=== PATIENT | female | born 1990 | race Caucasian/White ===

== ENCOUNTER → 2017-06-29 13:39 | Outpatient (CLI) | payer BC, SELFPAY ==
[2017-06-29 16:46] LABS: hCG Titer Quant., Serum 10 mIU/mL (<9 non-preg)
== END ==
PROVIDERS: Family Provider Family Medicine; PCP Family Medicine; Visit Provider Specialist
DX: O03.4 Incomplete spontaneous abortion without complication (principal)
CPT/HCPCS: 36415; 84702

== ENCOUNTER → 2017-07-08 12:55 | Outpatient (CLI) | payer BC, SELFPAY ==
--- NOTE | 2017-07-08 12:59 | US_ITS ---
STUDY: ULTRASOUND OF THE FEMALE PELVIS - COMPLETE REASON FOR EXAM: Female, 27 years old. Pelvic pain. Recent miscarriage. LMP: April 04, 2017. TECHNIQUE: Transvaginal TECHNICAL QUALITY: Adequate. COMPARISON: None. FINDINGS: The uterus is anteverted and is in a midline position. The uterus measures 8.7 cm x 5.0 cm x 3.6 cm. There is a Nabothian cyst of the cervix. The endometrium measures 9.1 mm in thickness, and is hyperechoic. There is no demonstrated endometrial mass. There is no demonstrated myometrial mass. I.U.D. - The patient does not have an I.U.D. The right ovary is visualized. The right ovary measures 3.7 cm x 1.4 cm x 1.6 cm. There is a dominant follicle within the ovary measuring 1.3 cm x 0.7 cm x 0.8 cm. There is no visualized right adnexal mass or complex lesion. There is normal arterial and normal venous vascularity. The left ovary is visualized. The left ovary measures 2.2 cm x 2.8 cm x 2.7 cm. Small follicles are seen within it. There is also evidence of a 1.4 cm x 1.2 cm x 1.1 cm echogenic nodule. This may represent a there are moderate. There is no visualized left adnexal mass or complex lesion. There is normal arterial and normal venous vascularity. There is no fluid in the cul-de-sac. US/Transvaginal Non- IMPRESSION: Bilateral ovarian follicles. 1.4 cm x 1.2 cm x 1.1 cm echogenic focus seen in the left ovary. This may represent a fat-containing nodule such as a dermoid. Electronically Signed: Bronson Wasserman MD at 15:19 EST Tel [phone], Service support ,
== END ==
PROVIDERS: Family Provider Family Medicine; PCP Family Medicine; Visit Provider Specialist
DX: R10.2 Pelvic and perineal pain (principal)
CPT/HCPCS: 76830; 93976

== ENCOUNTER → 2018-07-14 10:12 | Outpatient (CLI) | payer BC, SELFPAY ==
[2018-07-14 09:16] VITALS: BMI 25.1
[2018-07-14 12:31] LABS: Absolute Lymphocyte Count 1.93 X10^3/ul (0.83-4.51); Absolute Neutrophil Count 7.8 X10^3/uL (2.0-7.7); Basophil# 0.02 X10^3/uL; Basophil% 0.2 % (0-1); Eosinophil# 0.09 X10^3/uL; Eosinophils% 0.8 % (0-5); Hematocrit 37.2 % (37-47); Lymphocyte # 1.93 X10^3/ul (4.0); Lymphocyte % 18.1 % (19-41); Mean Corp Hgb Conc 32.3 g/gl (32-36); Mean Platelet Vol. 11.9 fl (6.2-12.0); Monocyte% 7.5 % (0-10); Neutrophil # 7.75 X10^3/uL (2.7-7.7); Neutrophil % 72.5 % (47-70); Platelet Count 231 K/mm3 (150-450); RBC Distribution Width CV 13.6 % (11.6-14.6); RBC Distribution Width SD 46.3 fl (35.1-43.9); White Blood Count 10.7 K/mm3 (4.4-11.0)
[2018-07-14 12:34] LABS: POSITIVE COUNT NO; POSITIVE DIFFERENTIAL NO; POSITIVE MORPHOLOGY NO
[2018-07-14 13:04] LABS: Glucose Challenge Gest 1H 50g 87 mg/dL (70-140)
== END ==
PROVIDERS: Family Provider Family Medicine; PCP Family Medicine; Visit Provider Obstetrics & Gynecology
DX: Z34.90 Encounter for supervision of normal pregnancy, unspecified, unspecified trimester (principal)
CPT/HCPCS: 36415; 82950; 85025

== ENCOUNTER → 2018-07-30 13:56 | Outpatient (CLI) | payer BC, SELFPAY ==
[2018-07-28 09:51] VITALS: BMI 25.1
[2018-07-30 16:58] LABS: T4 Free Direct 0.85 ng/dL (0.76-1.46); Thyroid Stim Hormone (TSH) 4.14 uIU/mL (0.358-3.74)
== END ==
PROVIDERS: Family Provider Family Medicine; PCP Family Medicine; Referring Provider Family Medicine; Visit Provider Nurse Practitioner Women's Health
DX: E03.9 Hypothyroidism, unspecified (principal)
CPT/HCPCS: 36415; 84439; 84443

== ENCOUNTER → 2018-09-01 14:22 | Outpatient (CLI) | payer BC, SELFPAY ==
[2018-09-01 09:07] VITALS: BMI 25.1
[2018-09-01 17:08] LABS: T4 Free Direct 0.92 ng/dL (0.76-1.46)
== END ==
PROVIDERS: Family Provider Family Medicine; PCP Family Medicine; Referring Provider Family Medicine; Visit Provider Obstetrics & Gynecology
DX: E03.9 Hypothyroidism, unspecified (principal)
CPT/HCPCS: 36415; 84439; 84443

== ENCOUNTER → 2018-09-09 17:04 | Outpatient (CLI) | payer BC, SELFPAY ==
[2018-09-09 13:55] VITALS: BMI 25.1
== END ==
PROVIDERS: Family Provider Family Medicine; PCP Family Medicine; Referring Provider Nurse Practitioner Women's Health; Visit Provider Nurse Practitioner Women's Health
DX: Z34.90 Encounter for supervision of normal pregnancy, unspecified, unspecified trimester (principal)
CPT/HCPCS: 87081

== ENCOUNTER → 2018-09-15 11:32 | Outpatient (CLI) | payer BC, SELFPAY ==
[2018-08-27 10:10] VITALS: BMI 25.1
[2018-09-09 13:55] VITALS: BMI 25.1
--- NOTE | 2018-09-15 11:36 | US_ITS ---
STUDY: SECOND AND THIRD TRIMESTER OBSTETRICAL ULTRASOUND - LIMITED REASON FOR EXAM: Female, 28 years old. growth. Maternal hypothyroidism. LMP: 12/24/2017 PRIOR ULTRASOUND: None. TECHNIQUE: Transabdominal ultrasound evaluation was performed. FINDINGS: Single live intrauterine gestation, cephalic presentation, cardiac rate 146 bpm. Amniotic fluid index 13.6 cm, maximum vertical pocket 4.3 x 8 cm. Cervical length 3.9 cm, closed. Placenta grade 2, anterior, not low-lying. Maternal adnexa not visualized. BIOMETRY: Measurement and centimeter. BPD: 9.1: 37 weeks, 0 days HC: 33.8: 38 weeks, 6 days AC: 34.9 : 38 weeks, 6 days FL: 7.4: 38 weeks, 0 days Age by LMP: 37 weeks, 6 days. EMILY by LMP: 09/30/2018. age by current US: 38 weeks, 2 days. EMILY by current US: 09/27/2018. Estimated weight: 3465 grams, +/- 506 grams, 73 percentile. Limited anatomic images were obtained for assessment of dates, viability and position only. In the limited survey no gross anatomic abnormality was observed. Anatomic imaging is limited by advanced dates. US/OB Limited With Biometrics IMPRESSION: No acute or maternal abnormality is evident. biometrics as noted above. Electronically Signed: Anselmo Harrell MD at 16:50 EDT Tel , Service support ,
== END ==
PROVIDERS: Family Provider Family Medicine; PCP Family Medicine; Referring Provider Obstetrics & Gynecology; Visit Provider Obstetrics & Gynecology
DX: O36.5990 Maternal care for other known or suspected poor fetal growth, unspecified trimester, not applicable or unspecified (principal); Z3A.00 Weeks of gestation of pregnancy not specified
CPT/HCPCS: 76816

== ENCOUNTER 2018-09-25 16:20 | Inpatient (IN) | payer BC, SELFPAY ==
[2018-09-22 08:53] VITALS: BMI 25.1
[2018-09-25 12:46] VITALS: BMI 28.5
[2018-09-25] MEDS: Lactated Ringers 1,000 ML 50 ML IV (16:30)
[2018-09-25 16:53] LABS: Absolute Lymphocyte Count 3.41 X10^3/ul (0.83-4.51); Absolute Neutrophil Count 7.8 X10^3/uL (2.0-7.7); Basophil# 0.03 X10^3/uL; Basophil% 0.2 % (0-1); Eosinophil# 0.05 X10^3/uL; Eosinophils% 0.4 % (0-5); Hematocrit 37.4 % (37-47); Hemoglobin 12.6 g/dl (12.0-15.0); Lymphocyte # 3.41 X10^3/ul (4.0); Lymphocyte % 27.6 % (19-41); Mean Corp Hgb Conc 33.7 g/gl (32-36); Mean Platelet Vol. 13.4 fl (6.2-12.0); Monocyte# 1.03 X10^3/uL; Monocyte% 8.3 % (0-10); Neutrophil % 63.3 % (47-70); Platelet Count 212 K/mm3 (150-450); RBC Distribution Width CV 13.6 % (11.6-14.6); RBC Distribution Width SD 44.4 fl (35.1-43.9); White Blood Count 12.3 K/mm3 (4.4-11.0)
[2018-09-25 17:08] LABS: POSITIVE COUNT NO; POSITIVE DIFFERENTIAL NO; POSITIVE MORPHOLOGY NO
--- NOTE | 2018-09-25 17:08 | PCM.HP.OB ---
- Problem List (1) Active labor at term Status: Acute (2) Hypothyroid Status: Acute Qualifiers: Comment: Needs repeat TSH in each trimester. (3) History of gestational hypertension Status: Acute Comment: baby ASA (4) Supervision of normal Status: Acute Qualifiers: Comment: PRR EMILY 09/30/18 PC Bing Melany Peterson Perdomo (5) Status: Acute Qualifiers: Comment: genetic, carrier, and ntd screening declined. anatomy scan normal at [place]. History Date of Admission: 09/25/18 Final EMILY: 09/30/18 Gestational age: 39 Weeks and 2 Days History of this : This is a 28 year-old, at 39 weeks gestational age presented IAL 7 cm dilated with SROM. She had been having ctx all day and started having some vaginal bleeding and clear discharge. she denies any complications wit the . Medical History: Medical History (Last Reviewed 09/22/18 @ 08:53 by Rema Villalpando) History of depression Z86.59 History of gestational hypertension Z87.59 2016 History of miscarriage Z87.59 History of depression Z87.59, Z86.59 Thyroid disorder E07.9 Surgical History: Surgical History (Last Reviewed 09/22/18 @ 08:53 by Rema Villalpando) History of tonsillectomy Z90.89 Allergies Sulfa (Sulfonamide Antibiotics) Allergy (Verified 09/25/18 16:57) Hives Home Medications: Home Medications No122/Iron/Folic Acid [ Multi Tablet] 1 ea PO DAILY 09/17/16 aspirin 81 mg chewable tablet 81 mg PO DAILY 06/14/18 sertraline 50 mg tablet 50 mg PO DAILY 06/14/18 levothyroxine 25 mcg tablet 25 mcg PO DAILY 08/27/18 Smoking Status: Former smoker History Past Pregnancies: Past Pregnancies 2 previous term deliveries uncomplicated Labs: Mom's Labs & Results 09/25/18 09/25/18 16:35 16:35 WBC 12.3 H RBC 4.20 Hgb 12.6 Hct 37.4 MCV 89.0 MCH 30.0 MCHC 33.7 RDW 13.6 RDW Differential 44.4 H Plt Count 212 MPV 13.4 H Immature Gran % (Auto) 0.200 Neut % (Auto) 63.3 Lymph % (Auto) 27.6 [place] % (Auto) 8.3 Eos % (Auto) 0.4 Baso % (Auto) 0.2 Absolute Neuts (auto) 7.8 H Absolute Lymphs (auto) 3.41 Total Counted Not Reportable Blood Type Pending Antibody Screen Pending Course Did the patient receive Yes care? Labs Blood Type: B RH: POSITIVE RPR/VDRL/Syphilis Nonreactive Rubella status Immune HbSAg Negative Date Done: 04/01/18 Chlamydia Negative Gonorrhea Negative HIV/AIDS Non-Reactive Group B Strep: Negative Current Obstetrical History Gestational Diabetes No Incompetent Cervix No Infertility No IUGR No Macrosomia No Hypertension/Pre-eclampsia No Social History Hx Smoking Yes Smoking Status Former smoker Expected Infant Delivery Method: Spontaneous Vaginal Review of Systems Constitutional: Denies: Fever, Malaise Eyes: Denies: Blurred vision, Vision Change HEENT: Denies: Head Aches, Visual Changes Cardiovascular: Denies: Chest Pain, Palpitations Respiratory: Denies: Cough, Shortness of Breath, Wheezing Gastrointestinal: Reports: Abdominal Pain. Denies: Diarrhea, Nausea, Vomiting Genitourinary: Denies: Dysuria, Hematuria Gynecological: Reports: Vaginal bleeding, Vaginal discharge Musculoskeletal: Denies: Joint Pain, Muscle pain Skin: Denies: Lesions, Rash Neurological: Denies: Blurred vision, Focal weakness, Headaches Psychiatric: Denies: Anxiety, Depression Endocrine: Denies: Heat/ Cold Intolerance Hematologic/ Lymphatic: Denies: Easy Bruising, Easy Bleeding Physical Exam General: Alert HEENT: Atraumatic, Normocephalic. Negative for: Thyromegaly, Lymphadenopathy Cardiovascular: Regular rate Lungs: Normal air movement Abdomen: Soft, Non Tender, Gravid Neurological: Deep Tendon Reflexes 2+/4 and Symmetrical, Neuro grossly intact. 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 Negative for: Vulvar lesions Estimated gestational size: Appropriate for gestational size Presentation: Cephalic Cervix Dilation (cm): 7 Assessment/Plan All Active Problems (Last Reviewed 09/22/18 @ 08:53 by Rema Villalpando) Active labor at term (Acute) Hypothyroid (Acute) History of gestational hypertension (Acute) Supervision of normal (Acute) (Acute) This is a 28 year-old, at 39 weeks gestational age presents IAL Patient presents IAL, plan expectant management for , pitocin PRN if needed. Pain management: none. GBS negative. Management of any complications: none I have reviewed the [facility] and made any clinically relevant updates.
--- NOTE | 2018-09-25 17:16 | HP.PCM_ITS ---
- Problem List (1) Active labor at term Status: Acute (2) Hypothyroid Status: Acute Qualifiers: Comment: Needs repeat TSH in each trimester. (3) History of gestational hypertension Status: Acute Comment: baby ASA (4) Supervision of normal Status: Acute Qualifiers: Comment: PRR EMILY 09/30/18 PC Bing Melany Peterson Perdomo (5) Status: Acute Qualifiers: Comment: genetic, carrier, and ntd screening declined. anatomy scan normal at [place]. History Date of Admission: 09/25/18 Final EMILY: 09/30/18 Gestational age: 39 Weeks and 2 Days History of this : This is a 28 year-old, at 39 weeks gestational age presented IAL 7 cm dilated with SROM. She had been having ctx all day and started having some vaginal bleeding and clear discharge. she denies any complications wit the . Medical History: Medical History (Last Reviewed 09/22/18 @ 08:53 by Rema Villalpando) History of depression Z86.59 History of gestational hypertension Z87.59 2016 History of miscarriage Z87.59 History of depression Z87.59, Z86.59 Thyroid disorder E07.9 Surgical History: Surgical History (Last Reviewed 09/22/18 @ 08:53 by Rema Villalpando) History of tonsillectomy Z90.89 Allergies Sulfa (Sulfonamide Antibiotics) Allergy (Verified 09/25/18 16:57) Hives Home Medications: Home Medications No122/Iron/Folic Acid [ Multi Tablet] 1 ea PO DAILY 09/17/16 aspirin 81 mg chewable tablet 81 mg PO DAILY 06/14/18 sertraline 50 mg tablet 50 mg PO DAILY 06/14/18 levothyroxine 25 mcg tablet 25 mcg PO DAILY 08/27/18 Smoking Status: Former smoker History Past Pregnancies: Past Pregnancies 2 previous term deliveries uncomplicated Labs: Mom's Labs & Results 09/25/18 09/25/18 16:35 16:35 WBC 12.3 H RBC 4.20 Hgb 12.6 Hct 37.4 MCV 89.0 MCH 30.0 MCHC 33.7 RDW 13.6 RDW Differential 44.4 H Plt Count 212 MPV 13.4 H Immature Gran % (Auto) 0.200 Neut % (Auto) 63.3 Lymph % (Auto) 27.6 [place] % (Auto) 8.3 Eos % (Auto) 0.4 Baso % (Auto) 0.2 Absolute Neuts (auto) 7.8 H Absolute Lymphs (auto) 3.41 Total Counted Not Reportable Blood Type Pending Antibody Screen Pending Course Did the patient receive Yes care? Labs Blood Type: B RH: POSITIVE RPR/VDRL/Syphilis Nonreactive Rubella status Immune HbSAg Negative Date Done: 04/01/18 Chlamydia Negative Gonorrhea Negative HIV/AIDS Non-Reactive Group B Strep: Negative Current Obstetrical History Gestational Diabetes No Incompetent Cervix No Infertility No IUGR No Macrosomia No Hypertension/Pre-eclampsia No Social History Hx Smoking Yes Smoking Status Former smoker Expected Infant Delivery Method: Spontaneous Vaginal Review of Systems Constitutional: Denies: Fever, Malaise Eyes: Denies: Blurred vision, Vision Change HEENT: Denies: Head Aches, Visual Changes Cardiovascular: Denies: Chest Pain, Palpitations Respiratory: Denies: Cough, Shortness of Breath, Wheezing Gastrointestinal: Reports: Abdominal Pain. Denies: Diarrhea, Nausea, Vomiting Genitourinary: Denies: Dysuria, Hematuria Gynecological: Reports: Vaginal bleeding, Vaginal discharge Musculoskeletal: Denies: Joint Pain, Muscle pain Skin: Denies: Lesions, Rash Neurological: Denies: Blurred vision, Focal weakness, Headaches Psychiatric: Denies: Anxiety, Depression Endocrine: Denies: Heat/ Cold Intolerance Hematologic/ Lymphatic: Denies: Easy Bruising, Easy Bleeding Physical Exam General: Alert HEENT: Atraumatic, Normocephalic. Negative for: Thyromegaly, Lymphadenopathy Cardiovascular: Regular rate Lungs: Normal air movement Abdomen: Soft, Non Tender, Gravid Neurological: Deep Tendon Reflexes 2+/4 and Symmetrical, Neuro grossly intact. 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 Negative for: Vulvar lesions Estimated gestational size: Appropriate for gestational size Presentation: Cephalic Cervix Dilation (cm): 7 Assessment/Plan All Active Problems (Last Reviewed 09/22/18 @ 08:53 by Rema Villalpando) Active labor at term (Acute) Hypothyroid (Acute) History of gestational hypertension (Acute) Supervision of normal (Acute) (Acute) This is a 28 year-old, at 39 weeks gestational age presents IAL Patient presents IAL, plan expectant management for , pitocin PRN if needed. Pain management: none. GBS negative. Management of any complications: none I have reviewed the [facility] and made any clinically relevant updates.
--- NOTE | 2018-09-25 17:17 | OP.PCM_ITS ---
Problem List (1) Active labor at term Status: Acute (2) Hypothyroid Status: Acute Qualifiers: Comment: Needs repeat TSH in each trimester. (3) History of gestational hypertension Status: Acute Comment: baby ASA (4) Supervision of normal Status: Acute Qualifiers: Comment: PRR EMILY 09/30/18 PC Melany Smart Peterson Perdomo (5) Status: Acute Qualifiers: Comment: genetic, carrier, and ntd screening declined. anatomy scan normal at [place]. Vaginal Delivery Maternal Presentation: Active Labor 39-week in active labor Amniotic Membrane Rupture Type: Spontaneous at home Amniotic Fluid Description: Clear Final EMILY: 09/30/18 Gestational age: 39 Weeks and 2 Days Date of Procedure: 09/25/18 Pre-Operative Diagnosis: ial Post-Operative Diagnosis: same Surgery/ Procedure Performed: Spontaneous Vaginal Delivery Type of Anesthesia: None Description of Procedure: Patient began pushing and delivered the head in the ESPERANZA presentation. The head was delivered atraumatically and a loose nuchal cord ?1 was identified and easily reduced over the infant's head. The anterior and posterior shoulders delivered without complication followed by the rest of the infant and the was placed on the maternal abdomen. Delayed cord clamping was employed for approximately 60 seconds. Cord was clamped and cut and gentle traction was applied to the cord and the placenta delivered spontaneously immediately following it was noted to be intact with three-vessel cord. The perineum and vagina were inspected and noted to have no laceration. EBL was 50 cc. Patient and infant tolerated delivery well. Presentation: ESPERANZA Placental Delivery Description: Spontaneous Placenta Disposition: [facility] Cord Vessel Description: 3 Vessels Cord Entanglement: Around neck x 1, loose Estimated Blood Loss: 50 Infant A gender: Male Episiotomy Description: None Laceration: None Medications given after delivery: IV Pitocin Complications: None
[2018-09-25] MEDS: Oxytocin 30 units/NS 500 ml 30 UNITS/500 ML IV.SOLN 334 UNITS IV (17:50)
[2018-09-25] MEDS: Oxytocin 30 units/NS 500 ml 30 UNITS/500 ML IV.SOLN 167 UNITS IV (18:20)
[2018-09-25] MEDS: Naproxen 250 MG Tablet 500 MG PO (18:23)
[2018-09-25] MEDS: 0.9% Saline Lock 10 ML Syringe IV (19:20)
[2018-09-25 21:00] VITALS: BP 125/68; PULSE 80; RESP 16; TEMP 36.8
[2018-09-25] MEDS: Acetaminophen 500 MG Tablet 1000 MG PO (21:50)
[2018-09-26] VITALS: BP 105/49; PULSE 77; RESP 16; TEMP 36.3
[2018-09-26 04:00] VITALS: BP 105/67; PULSE 55; RESP 16; TEMP 36.6
[2018-09-26] MEDS: Naproxen 250 MG Tablet 500 MG PO ×2 (04:34→18:18)
[2018-09-26 07:45] VITALS: BP 113/66; PULSE 61; RESP 15; TEMP 35.9
--- NOTE | 2018-09-26 08:11 | PN.OBGYN_ITS ---
Patient Problems: Active and Suspected Problems (Last Reviewed 09/22/18 @ 08:53 by Rema Villalpando) Active labor at term (Acute) Subjective: doing well no complaints pain controlled no CP SOB N V ambulating well tolerating po lochia moderate, going well - Physical Exam General: Alert, Oriented x3 Abdomen: Soft, Non Tender, - - FF below U Vital Signs Temp Pulse Resp BP 97.9 F 55 L 16 105/67 09/26/18 04:00 09/26/18 04:00 09/26/18 04:00 09/26/18 04:00 Weight: 151 lb Body Mass Index (BMI) 28.5 Intake and Output for Last 24 Hours 09/24/18 09/25/18 09/26/18 23:59 23:59 23:59 Output Total 550 / 550 Balance -550 / -550 Laboratory Tests Past 24 Hrs 09/25/18 09/25/18 16:35 16:35 WBC 12.3 H RBC 4.20 Hgb 12.6 Hct 37.4 MCV 89.0 MCH 30.0 MCHC 33.7 RDW 13.6 RDW Differential 44.4 H Plt Count 212 MPV 13.4 H Immature Gran % (Auto) 0.200 Neut % (Auto) 63.3 Lymph % (Auto) 27.6 [place] % (Auto) 8.3 Eos % (Auto) 0.4 Baso % (Auto) 0.2 Absolute Neuts (auto) 7.8 H Absolute Lymphs (auto) 3.41 Total Counted Not Reportable Blood Type B POSITIVE Antibody Screen NEGATIVE Medical Necessity - Tobacco Use Smoking Status: Former smoker Assessment/Plan All Active Problems (Last Reviewed 09/22/18 @ 08:53 by Rema Villalpando) Active labor at term (Acute) Hypothyroid (Acute) History of gestational hypertension (Acute) Supervision of normal (Acute) (Acute) s/p PPD # 1 1. routine post delivery care 2. breast feeding- support given 3. rh positive 4. rubella immune
[2018-09-26] MEDS: Levothyroxine 25 MCG TABLET PO (12:20)
[2018-09-26] MEDS: Acetaminophen 500 MG Tablet 1000 MG PO (12:20)
[2018-09-26 12:30] VITALS: BP 111/66; PULSE 56; RESP 16; TEMP 36.3
[2018-09-26 16:00] VITALS: BP 89/45; PULSE 70; RESP 16; TEMP 36.1
--- NOTE | 2018-09-26 16:25 | PCM.DCVAG ---
Additional Instructions: If you experience any of the following, contact your healthcare provider. Bleeding that soaks a pad every hour for 2 hours Fever 100.4 or higher Unrelieved incision or abdominal pain Swelling, redness, discharge or bleeding from your incision or episiotomy site Your incision begins to separate Problems urinating (including inability to urinate or burning while urinating). Visual changes Severe headache Flu-like symptoms Pain or redness in one of both of your breasts Pain, warmth, tenderness or swelling in your legs, especially the calf area Frequent nausea and vomiting Symptoms of depression or anxiety If you experience any of the following, call 911 or go to the nearest Emergency Room. Chest pain Problems breathing Seizure activity Partial or complete paralysis of a body part, slurred speech, weakness or drooping of the face, or a sudden inability to walk or hold your balance Allergies/Adverse Reactions: Allergies Sulfa (Sulfonamide Antibiotics) Allergy (Verified 09/25/18 16:57) Hives Medications to take at Discharge No122/Iron/Folic Acid [ Multi Tablet] 1 ea PO DAILY 09/17/16 aspirin 81 mg chewable tablet 81 mg PO DAILY 06/14/18 sertraline 50 mg tablet 50 mg PO DAILY 06/14/18 levothyroxine 25 mcg tablet 25 mcg PO DAILY 08/27/18 Primary Care Physician: Katrina Cuevas MD [Primary Care Provider] - Test Results: Test results from this visit will be discussed in further detail at your follow-up appointment, if applicable.
--- NOTE | 2018-09-26 16:26 | DCINST_ITS ---
Additional Instructions: If you experience any of the following, contact your healthcare provider. * Bleeding that soaks a pad every hour for 2 hours * Fever 100.4 or higher * Unrelieved incision or abdominal pain * Swelling, redness, discharge or bleeding from your incision or episiotomy site * Your incision begins to separate * Problems urinating (including inability to urinate or burning while urinating). * Visual changes * Severe headache * Flu-like symptoms * Pain or redness in one of both of your breasts * Pain, warmth, tenderness or swelling in your legs, especially the calf area * Frequent nausea and vomiting * Symptoms of depression or anxiety If you experience any of the following, call 911 or go to the nearest Emergency Room. * Chest pain * Problems breathing * Seizure activity * Partial or complete paralysis of a body part, slurred speech, weakness or drooping of the face, or a sudden inability to walk or hold your balance Allergies/Adverse Reactions: Allergies Sulfa (Sulfonamide Antibiotics) Allergy (Verified 09/25/18 16:57) Hives Medications to take at Discharge No122/Iron/Folic Acid [ Multi Tablet] 1 ea PO DAILY 09/17/16 aspirin 81 mg chewable tablet 81 mg PO DAILY 06/14/18 sertraline 50 mg tablet 50 mg PO DAILY 06/14/18 levothyroxine 25 mcg tablet 25 mcg PO DAILY 08/27/18 Primary Care Physician: Ktarina Cuevas MD [Primary Care Provider] - Test Results: Test results from this visit will be discussed in further detail at your follow- up appointment, if applicable.
== END 2018-09-26 19:25 | disposition home or self-care (01) | DRG 807 ==
LOC: WPOUT 16:31
PROVIDERS: Admitting Provider Obstetrics & Gynecology; Family Provider Family Medicine; PCP Family Medicine; Referring Provider Obstetrics & Gynecology; Visit Provider Obstetrics & Gynecology
DX: O69.81X0 Labor and delivery complicated by cord around neck, without compression, not applicable or unspecified (principal); Z37.0 Single live birth; Z87.891 Personal history of nicotine dependence; Z87.59 Personal history of other complications of pregnancy, childbirth and the puerperium; Z86.59 Personal history of other mental and behavioral disorders; Z3A.39 39 weeks gestation of pregnancy
CPT/HCPCS: 59025; 59050; 85025; 86850; 86900; 99218; J7120; A4216; G0378

== ENCOUNTER → 2018-11-12 13:37 | Outpatient (CLI) | payer BC, SELFPAY ==
[2018-11-12 10:25] VITALS: BMI 28.5
[2018-11-17 11:32] LABS: HPV Reflexed? NOT INDICATED
== END ==
PROVIDERS: Family Provider Family Medicine; PCP Family Medicine; Referring Provider Obstetrics & Gynecology; Visit Provider Obstetrics & Gynecology
DX: Z12.4 Encounter for screening for malignant neoplasm of cervix (principal)
CPT/HCPCS: 87624; 88175; G0145

== ENCOUNTER → 2019-06-28 16:13 | Outpatient (CLI) | payer OTHER, SELFPAY ==
[2018-11-12 10:25] VITALS: BMI 28.5
[2019-06-28 18:24] LABS: Anion Gap 6 (5-15); BUN 16 mg/dL (7-18); BUN/Creat Ratio 19.7 RATIO (10-20); CPK Total, Creatine Kinase 110 U/L (26-192); Calcium,Total 9.3 mg/dL (8.5-10.1); Chloride 111 mmol/L (98-107); Creatinine, Serum 0.81 mg/dL (0.55-1.02); EST Glomerular Filtration Rate 89 mL/min (>60); Est Glom Filt Rate - Afr Amer 107 mL/min (>60); Ferritin 26 ng/mL (8-252); Glucose 72 mg/dL (74-106); Magnesium 2.2 mg/dL (1.6-2.6); Potassium 3.9 mmol/L (3.5-5.1); Sodium Level 145 mmol/L (136-145)
== END ==
PROVIDERS: PCP Family Medicine; Referring Provider Family Medicine; Visit Provider Family Medicine
DX: R25.2 Cramp and spasm (principal)
CPT/HCPCS: 36415; 80048; 82550; 82728; 83735

== ENCOUNTER → 2019-11-04 10:07 | Outpatient (CLI) | payer OTHER, SELFPAY ==
[2018-11-12 10:25] VITALS: BMI 28.5
--- NOTE | 2019-11-04 10:11 | US_ITS ---
STUDY: ABDOMINAL ULTRASOUND REASON FOR EXAM: Female, 29 years old. GENERAL ABD PAIN X 1.5 YEARS TECHNIQUE: Transabdominal ultrasound was performed with real-time and static dang scale imaging. TECHNICAL QUALITY: Adequate. COMPARISON: None. FINDINGS: Liver: The liver measures 13.6 cm. There is normal echogenicity of the liver. The bile ducts are within normal limits. There is hepatic color flow. The direction of portal flow is hepatopetal. There is no demonstrated mass lesion. Portal vein measurement: Gallbladder: Normal distended gallbladder. The gallbladder wall measures 2.0 mm. There is a negative sonographic Corado''s sign. There is no pericholecystic fluid. There are no gallstones. 2 small gallbladder polyps are seen. The larger measures 4 mm x 4 mm. Common Bile Duct (C.B.D.): The common bile duct measures 3.0 mm. Pancreas: Normal size of the head, body and tail of the pancreas. There is normal echogenicity of the pancreas. There is no demonstrated pancreatic mass or cyst. Spleen: Normal size of the spleen. The spleen measures 10.8 cm x 3.7 cm x 5.1 cm. Right Kidney: Normal size of the right kidney. The right kidney measures 9.8 cm x 5.1 cm x 4.9 cm. Normal renal cortex. The right cortex measures 1.3 cm. There is no demonstrated renal mass or cyst. There is no right hydronephrosis. Left Kidney: Normal size of the left kidney. The left kidney measures 10.3 cm x 4.5 cm x 5.1 cm. Normal renal cortex. The left cortex measures 1.4 cm. There is no demonstrated renal mass or cyst. There is no left hydronephrosis. Aorta: Unremarkable I.V.C.: The IVC is patent. There is no ascites. US/Abdomen Complete IMPRESSION: 2 small polyps are seen along the anterior wall of the gallbladder. Electronically Signed: Bronson Wasserman, at 12:12 EDT , Service support ,
== END ==
PROVIDERS: PCP Family Medicine; Referring Provider Family Medicine; Visit Provider Family Medicine
DX: R10.9 Unspecified abdominal pain (principal)
CPT/HCPCS: 76700

== ENCOUNTER → 2020-05-28 17:31 | Outpatient (CLI) | payer OTHER, SELFPAY ==
[2019-12-08 13:38] VITALS: BMI 23.4
== END ==
PROVIDERS: PCP Family Medicine; Visit Provider Family Medicine
DX: R68.89 Other general symptoms and signs (principal)
CPT/HCPCS: 87633

== ENCOUNTER → 2020-06-26 09:42 | Outpatient (CLI) | payer OTHER, SELFPAY ==
[2019-12-08 13:38] VITALS: BMI 23.4
[2020-06-26 12:05] LABS: Hematocrit 40.3 % (37-47); Hemoglobin 12.7 g/dL (12.0-15.0); Mean Corp Hgb Conc 31.5 g/dL (32-36); Mean Corpuscular Hgb 29.1 pg (27.0-32.0); Mean Corpuscular Volume 92.4 fL (81-99); Mean Platelet Vol. 11.6 fl (6.2-12.0); Platelet Count 228 K/mm3 (150-450); RBC Distribution Width CV 13.1 % (11.6-14.6); RBC Distribution Width SD 44.9 fl (35.1-43.9); Red Blood Count 4.36 M/mm3 (4.2-5.4); White Blood Count 6.1 K/mm3 (4.4-11.0)
[2020-06-26 12:27] LABS: Anion Gap 4 (5-15); BUN 18 mg/dL (7-18); BUN/Creat Ratio 20.2 RATIO (10-20); Chloride 110 mmol/L (98-107); Creatinine, Serum 0.89 mg/dL (0.55-1.02); EST Glomerular Filtration Rate 79 mL/min (>60); Est Glom Filt Rate - Afr Amer 95 mL/min (>60); Glucose 65 mg/dL (74-106); Potassium 3.7 mmol/L (3.5-5.1); Sodium Level 141 mmol/L (136-145); Thyroid Stim Hormone (TSH) 2.38 uIU/mL (0.358-3.74)
== END ==
PROVIDERS: PCP Family Medicine; Visit Provider Nurse Practitioner Family
DX: R00.2 Palpitations (principal)
CPT/HCPCS: 36415; 80048; 84443; 85027

== ENCOUNTER → 2020-06-29 11:12 | Outpatient (CLI) | payer OTHER, SELFPAY ==
[2019-12-08 13:38] VITALS: BMI 23.4
[2020-06-29 15:37] LABS: Free T3 2.3 pg/mL (2.18-3.98); T4 Free Direct 0.84 ng/dL (0.76-1.46)
== END ==
PROVIDERS: PCP Family Medicine; Referring Provider Family Medicine; Visit Provider Nurse Practitioner Family
DX: E03.9 Hypothyroidism, unspecified (principal)
CPT/HCPCS: 36415; 84439; 84481

== ENCOUNTER → 2020-07-24 13:22 | Outpatient (CLI) | payer OTHER, SELFPAY ==
[2019-12-08 13:38] VITALS: BMI 23.4
--- NOTE | 2020-07-24 13:30 | RAD_ITS ---
STUDY: X-RAY - LEFT FOOT CLINICAL: Fifth toe pain and bruising after injury. TECHNIQUE: 3 view(s) of the foot. COMPARISON: None. FINDINGS: Normal talus, calcaneus, and tarsal bones. Normal visualized subtalar, talonavicular, calcaneocuboid, tarsal and tarsometatarsal articulations. Normal metatarsi. Normal metatarsophalangeal joint of the great toe. Normal tibial and fibular sesamoid bones. Normal interphalangeal joint of the great toe. Normal phalanges of the great toe. Normal second through fifth metatarsophalangeal joints. Normal interphalangeal joints and phalanges of the lesser toes. There is soft tissue swelling at the lateral aspect of the forefoot. RAD/Foot min 3 Views IMPRESSION: Soft tissue swelling. No demonstrated fracture. Electronically Signed: Tony Bardales MD at 15:22 EST Tel , Service support ,
== END ==
PROVIDERS: PCP Family Medicine; Referring Provider Family Medicine; Visit Provider Family Medicine
DX: S99.929A Unspecified injury of unspecified foot, initial encounter (principal)
CPT/HCPCS: 73630

== ENCOUNTER → 2020-08-29 10:10 | Outpatient (CLI) | payer OTHER, SELFPAY ==
[2020-08-02 13:07] VITALS: BMI 20.7
--- NOTE | 2020-08-29 10:14 | ECHOD_ITS ---
Reason For Study: PALPITATIONS Procedure This was a 2D Doppler, Color Flow transthoracic echocardiogram. The exam was of adequate technical quality. Exam performed in department. Left Ventricle Normal LV size. Left ventricular systolic function is normal. The estimated ejection fraction is 65 %. No evidence for diastolic dysfunction. No regional wall motion abnormalities noted. Right Ventricle Normal RV size. Normal systolic function. Atria Normal left atrium. Normal right atrium. No doppler evidence for ASD. Mitral Valve There is no mitral annular calcification. Mild mitral valve prolapse. Trivial mitral valve insufficiency. Tricuspid Valve Normal tricuspid valve. Trivial tricuspid valve insufficiency. Right ventricular systolic pressure estimated to be 21 mmHg. Aortic Valve Trisinus/trileaflet aortic valve. Normal aortic valve. Pulmonic Valve The pulmonic valve is not well visualized. Great Vessels Normal sized aortic root. Pericardium/Pleural No pericardial effusion. MMode/2D Measurements & Calculations LVIDd: 4.6 cm IVSd: 0.51 cm Ao root diam: 2.8 cm LVIDs: 3.2 cm LVPWd: 0.50 cm RVDd: 2.4 cm FS: 29.5 % LAV(MOD-bp): 31.2 ml LVAd ap4: 24.6 cm2 SV(MOD-sp4): 42.7 ml LAV(MOD-bp) Indexed: 21.4 ml/m2 EDV(MOD-sp4): 66.0 ml LAV(MOD-sp2): 37.6 ml EDV(sp4-el): 66.9 ml LAV(MOD-sp4): 22.6 ml LVAs ap4: 13.7 cm2 ESV(MOD-sp4): 23.2 ml ESV(sp4-el): 23.4 ml EF(MOD-sp4): 64.8 % EF(sp4-el): 65.0 % SV(sp4-el): 43.5 ml LA A4 area: 10.7 cm2 LA dimension(2D): 2.9 cm RA A4 area: 8.9 cm2 Time Measurements MV dec time: 0.26 sec Doppler Measurements & Calculations MV E max marlon: 91.8 cm/sec Lat Peak E' Marlon: 24.4 cm/sec Med Peak E' Marlon: 18.7 cm/sec MV A max marlon: 48.8 cm/sec E/E' lat: 3.8 E/E' med: 4.9 MV E/A: 1.9 Ao V2 max: 97.7 cm/sec LV V1 max: 113.2 cm/sec PA V2 max: 115.4 cm/sec Ao max P.8 mmHg LV V1 max P.1 mmHg TR max marlon: 213.3 cm/sec TR max P.2 mmHg ECHO/Echo Complete Interpretation Summary Left ventricular systolic function is normal. The estimated ejection fraction is 65 %. Mild mitral valve prolapse. Trivial mitral valve insufficiency. Trivial tricuspid valve insufficiency. Right ventricular systolic pressure estimated to be 21 mmHg. No evidence for diastolic dysfunction. Ordering Physician: Osmar Koenig Referring Physician: ALEXIS ESTEVES Performed By: Nathaly Roche, CINDY, RVT
== END ==
PROVIDERS: PCP Family Medicine; Referring Provider Internal Medicine Cardiovascular Disease; Visit Provider Internal Medicine Cardiovascular Disease
DX: R00.2 Palpitations (principal)
CPT/HCPCS: 93306

== ENCOUNTER → 2020-09-06 13:07 | Outpatient (CLI) | payer OTHER, SELFPAY ==
[2020-08-02 13:07] VITALS: BMI 20.7
== END ==
PROVIDERS: PCP Family Medicine; Referring Provider Nurse Practitioner Women's Health; Visit Provider Nurse Practitioner Women's Health
DX: N91.2 Amenorrhea, unspecified (principal)
CPT/HCPCS: 36415; 84702

== ENCOUNTER → 2020-09-12 12:18 | Outpatient (CLI) | payer OTHER, SELFPAY ==
[2020-08-02 13:07] VITALS: BMI 20.7
--- NOTE | 2020-09-12 12:21 | US_ITS ---
STUDY: FIRST TRIMESTER OBSTETRICAL ULTRASOUND REASON FOR EXAM: Female, 30 years old dating LMP: Unsure. TECHNIQUE: Transvaginal TECHNICAL QUALITY: Adequate. PRIOR ULTRASOUND: None. FINDINGS: There is visualization of a single gestational sac in a normal intrauterine position. The gestational sac shape is within normal limits. There is no demonstrated yolk sac. There is visualization of the placenta. Anterior placenta. There is visualization of a live embryo. The crown-rump length (CRL) measures 7.4 cm, indicating an estimated gestational age (EGA) of 13 weeks, 3 days. There is demonstrated cardiac activity with a heart rate of 164 bpm. The estimated gestation age (EGA) by LMP is 10 weeks, 4 days. The estimated date of delivery (EMILY) by LMP is 04/06/2021. The estimated gestation age (EGA) by US is 13 weeks, 3 days. The estimated date of delivery (EMILY) by US is 03/17/2021. The uterus measures 11.7 cm x 11.6 cm x 9.1 cm. There is no demonstrated uterine fibroid. The cervix is closed. The right ovary is not visualized. The left ovary measures 1.7 cm x 2 cm x 1.7 cm. There is no left ovarian cyst. There is no visualized left adnexal mass or complex lesion. There is no fluid in the cul de sac. US/Init OB < 14Wks US IMPRESSION: Single live intrauterine gestation with a mean gestational age of 13 weeks and 3 days. Electronically Signed: Bronson Wasserman MD at 15:56 EDT , Service support ,
== END ==
PROVIDERS: PCP Family Medicine; Referring Provider Obstetrics & Gynecology; Visit Provider Obstetrics & Gynecology
DX: Z34.90 Encounter for supervision of normal pregnancy, unspecified, unspecified trimester (principal)
CPT/HCPCS: 76801

== ENCOUNTER → 2020-09-18 16:53 | Outpatient (CLI) | payer OTHER, SELFPAY ==
[2020-09-18 15:24] VITALS: BMI 22.1
[2020-09-18 17:37] LABS: Amphetamine Urine VISTA NEGATIVE (<1000 ng/mL); Barbiturate Urine VISTA NEGATIVE (< 200 ng/mL); Benzodiazepine Urine VISTA NEGATIVE (< 200 ng/mL); Cocaine Urine VISTA NEGATIVE (< 300 ng/mL); Ecstacy Urine VISTA NEGATIVE (< 500 ng/mL); Methadone Urine VISTA NEGATIVE (< 300 ng/mL); PCP Urine VISTA NEGATIVE (< 25 ng/mL); THC Urine VISTA NEGATIVE (< 50 ng/mL); Vista UDS pH Range 5
[2020-09-21 03:07] LABS: Chlamydia By Nucleic Acid AMP Negative (Negative)
[2020-09-21 09:14] LABS: Gonococcus By Nucleic Acid AMP Negative (Negative)
== END ==
PROVIDERS: PCP Family Medicine; Referring Provider Obstetrics & Gynecology; Visit Provider Obstetrics & Gynecology
DX: Z34.90 Encounter for supervision of normal pregnancy, unspecified, unspecified trimester (principal)
CPT/HCPCS: 80307; 87086; 87088; 87491; 87591

== ENCOUNTER → 2020-09-21 14:47 | Outpatient (CLI) | payer OTHER, SELFPAY ==
[2020-09-18 15:24] VITALS: BMI 22.1
[2020-09-21 15:49] LABS: NATERA MAILED SPECIMEN
[2020-09-21 17:35] LABS: Absolute Lymphocyte Count 2.27 X10^3/uL (0.83-4.51); Absolute Neutrophil Count 7.4 X10^3/uL (2.0-7.7); Basophil# 0.03 X10^3/uL; Basophil% 0.3 % (0-1); Eosinophil# 0.06 X10^3/uL; Eosinophils% 0.6 % (0-5); Hematocrit 37.3 % (37-47); Hemoglobin 12.2 g/dL (12.0-15.0); Lymphocyte # 2.27 X10^3/ul (0.83-4.51); Mean Corp Hgb Conc 32.7 g/dL (32-36); Mean Corpuscular Volume 91.9 fL (81-99); Mean Platelet Vol. 11.6 fl (6.2-12.0); Monocyte# 0.54 X10^3/uL; Monocyte% 5.2 % (0-10); NRBC Flagged by Analyzer 0 % (0-5); Neutrophil # 7.37 X10^3/uL (2.7-7.7); Neutrophil % 71.5 % (47-70); Platelet Count 270 K/mm3 (150-450); RBC Distribution Width CV 13.2 % (11.6-14.6); Red Blood Count 4.06 M/mm3 (4.2-5.4); White Blood Count 10.3 K/mm3 (4.4-11.0)
[2020-09-24 10:15] LABS: HIV - WCH Non-Reactive (Nonreactive); Hepatitis B Surface Antigen Non-Reactive (Nonreactive); Hepatitis C Antibody Non-Reactive (Nonreactive); Rubella IgG Reactive (Nonreactive); Syphilis Antibodies Non-reactive
== END ==
PROVIDERS: PCP Family Medicine; Visit Provider Obstetrics & Gynecology
DX: Z34.90 Encounter for supervision of normal pregnancy, unspecified, unspecified trimester (principal)
CPT/HCPCS: 36415; 85025; 86703; 86762; 86780; 86803; 86850; 86900; 86901; 87340

== ENCOUNTER → 2020-10-17 10:23 | Outpatient (CLI) | payer OTHER, SELFPAY ==
[2020-10-17 09:54] VITALS: BMI 22.1
[2020-10-17 11:22] LABS: T4 Free Direct 0.88 ng/dL (0.76-1.46); Thyroid Stim Hormone (TSH) 3.69 uIU/mL (0.358-3.74)
== END ==
PROVIDERS: PCP Family Medicine; Referring Provider Nurse Practitioner Women's Health; Visit Provider Nurse Practitioner Women's Health
DX: Z34.80 Encounter for supervision of other normal pregnancy, unspecified trimester (principal); Z86.39 Personal history of other endocrine, nutritional and metabolic disease
CPT/HCPCS: 36415; 84439; 84443

== ENCOUNTER → 2020-10-24 15:37 | Outpatient (CLI) | payer OTHER, SELFPAY ==
[2020-10-17 09:54] VITALS: BMI 22.1
[2020-10-23 09:14] VITALS: BMI 22.1
--- NOTE | 2020-10-24 15:39 | US_ITS ---
STUDY: SECOND AND THIRD TRIMESTER OBSTETRICAL ULTRASOUND REASON FOR EXAM: Female, 30 years old anatomy scan LMP: 06/30/2020. TECHNIQUE: Transabdominal and Transvaginal TECHNICAL QUALITY: Adequate. PRIOR ULTRASOUND: Comparison is made with prior study dated 09/12/2020. FINDINGS: There is a single intrauterine fetus. The fetus is in a cephalic presentation. There is demonstrated cardiac activity with a heart rate of 143 bpm. There is a normal amniotic fluid volume. The largest amniotic fluid pocket measures 4.8 cm. The amniotic fluid index (LYNDSEY) is within normal limits. The placenta is anterior in location and is not low lying. There are Grade 0 placental changes. The cervix measures 3.7 cm in length. The adnexal regions are not visualized. The umbilical cord is inserted at 1.9 cm from the edge of the placenta. BIOMETRY: BPD: 4.09 cm: 18 weeks, 2 days HC: 15.73 cm: 18 weeks, 4 days AC: 13.51 cm: 18 weeks, 6 days FL: 2.78 cm: 8 weeks, 3 days CI: 75% FL/BPD: 68% FL/HC: FL/AC: 20.6% HC/AC: 1.16 age by current US: 18 weeks, 2 days. EMILY by current US: 03/25/2021. Estimated weight: 254 grams, +/- 38 grams, 13.4 %. age by prior US: 19 weeks, 3 days. EMILY by prior US: 03/17/2021. Age by LMP: 19 weeks, 3 days. EMILY by LMP: 03/17/2021. ANATOMY: Gender: Male Cranium: Normal lateral ventricles. Normal choroid plexus. Normal cerebellum. Normal cisterna magna. Normal face, nose and lips. Chest: Normal 4-chamber heart. Abdomen/Pelvis: Normal diaphragm. Normal stomach. Normal abdominal wall. Normal cord insertion. Normal 3 vessel cord. Normal kidneys. Normal bladder. Spine: Normal cervical spine. Normal thoracic spine. Normal lumbar spine. Normal sacrum. Extremities: Normal bilateral upper extremities. Normal bilateral lower extremities. US/OB Anatomy Scan IMPRESSION: Single live intrauterine gestation with a mean gestational age of 19 weeks and 3 days. The measurements obtained today fall within the normal expected range. Electronically Signed: Bronson Wasserman MD at 9:09 EDT , Service support ,
== END ==
PROVIDERS: PCP Family Medicine; Referring Provider Nurse Practitioner Women's Health; Visit Provider Nurse Practitioner Women's Health
DX: Z34.80 Encounter for supervision of other normal pregnancy, unspecified trimester (principal)
CPT/HCPCS: 76805; 76817

== ENCOUNTER → 2020-12-12 09:16 | Outpatient (CLI) | payer OTHER, SELFPAY ==
[2020-11-13 09:41] VITALS: BMI 22.1
[2020-12-12 12:09] LABS: Absolute Lymphocyte Count 2.06 X10^3/uL (0.83-4.51); Basophil# 0.04 X10^3/uL; Basophil% 0.4 % (0-1); Eosinophil# 0.08 X10^3/uL; Eosinophils% 0.8 % (0-5); Hematocrit 36.7 % (37-47); Hemoglobin 11.9 g/dL (12.0-15.0); Lymphocyte # 2.06 X10^3/ul (0.83-4.51); Lymphocyte % 20.2 % (19-41); Mean Corp Hgb Conc 32.4 g/dL (32-36); Mean Corpuscular Hgb 30.6 pg (27.0-32.0); Mean Corpuscular Volume 94.3 fL (81-99); Mean Platelet Vol. 11.8 fl (6.2-12.0); Monocyte# 0.84 X10^3/uL; Monocyte% 8.2 % (0-10); NRBC Flagged by Analyzer 0 % (0-5); Neutrophil # 7.04 X10^3/uL (2.7-7.7); Neutrophil % 69.1 % (47-70); Platelet Count 225 K/mm3 (150-450); RBC Distribution Width CV 13.3 % (11.6-14.6); RBC Distribution Width SD 45.6 fl (35.1-43.9); Red Blood Count 3.89 M/mm3 (4.2-5.4); White Blood Count 10.2 K/mm3 (4.4-11.0)
[2020-12-12 12:17] LABS: Glucose Challenge Gest 1H 50g 68 mg/dL (70-140)
== END ==
PROVIDERS: Obstetrics & Gynecology; PCP Family Medicine; Referring Provider Family Medicine; Visit Provider Obstetrics & Gynecology
DX: Z13.1 Encounter for screening for diabetes mellitus (principal); Z34.80 Encounter for supervision of other normal pregnancy, unspecified trimester
CPT/HCPCS: 36415; 82950; 85025

== ENCOUNTER → 2020-12-13 09:08 | Outpatient (CLI) | payer OTHER, SELFPAY ==
[2020-12-13 08:51] VITALS: BMI 22.1
[2020-12-13 09:51] LABS: T4 Free Direct 0.83 ng/dL (0.76-1.46); Thyroid Stim Hormone (TSH) 4.84 uIU/mL (0.358-3.74)
== END ==
PROVIDERS: PCP Family Medicine; Referring Provider Nurse Practitioner Women's Health; Visit Provider Nurse Practitioner Women's Health
DX: Z13.29 Encounter for screening for other suspected endocrine disorder (principal); Z86.39 Personal history of other endocrine, nutritional and metabolic disease; Z3A.22 22 weeks gestation of pregnancy
CPT/HCPCS: 36415; 84439; 84443

== ENCOUNTER → 2020-12-26 12:30 | Outpatient (CLI) | payer OTHER, SELFPAY ==
[2020-10-23 09:14] VITALS: BMI 22.1
[2020-12-13 08:51] VITALS: BMI 22.1
--- NOTE | 2020-12-26 12:34 | US_ITS ---
STUDY: SECOND AND THIRD TRIMESTER OBSTETRICAL ULTRASOUND REASON FOR EXAM: Female, 30 years old. Growth and placental cord insertion. LMP: 06/10/2020. TECHNIQUE: Transabdominal TECHNICAL QUALITY: Adequate. PRIOR ULTRASOUND: None. FINDINGS: There is a single intrauterine fetus. The fetus is in a transverse lie with the head on the maternal right side. There is demonstrated cardiac activity with a heart rate of 132 bpm. There is a normal amniotic fluid volume. The largest amniotic fluid pocket measures 5.2 cm. The amniotic fluid index (LYNDSEY) is without normal limits. The placenta is anterior in location and is not low lying. There are Grade 0 placental changes. The cervix measures 4.8 cm in length. The adnexal regions are not visualized. BIOMETRY: BPD: 6.74 cm: 27 weeks, 1 days HC: 25.25 cm: 27 weeks, 2 days AC: 24.72 cm: 28 weeks, 6 days FL: 5.04 cm: 26 weeks, 0 days CI: 77% FL/BPD: 75% FL/HC: FL/AC: 20% HC/AC: 1.02 age by current US: 27 weeks, 2 days. EMILY by current US: 03/25/2021. Estimated weight: 1180 grams, +/- 177 grams, 27 %. age by prior US: 27 weeks, 2 days. EMILY by prior US: 03/25/2021. Age by LMP: 28 weeks, 3 days. EMILY by LMP: 03/17/2021. The placental cord insertion is 3.1 sinus from the placental edge. US/OB Limited With Biometrics IMPRESSION: Single live uterine gestation with a mean gestational age of 27 weeks and 2 days. Electronically Signed: Bronson Wasserman MD at 15:40 EDT , Service support ,
== END ==
PROVIDERS: PCP Family Medicine; Referring Provider Nurse Practitioner Women's Health; Visit Provider Nurse Practitioner Women's Health
DX: O26.892 Other specified pregnancy related conditions, second trimester (principal); R00.2 Palpitations; Z3A.22 22 weeks gestation of pregnancy; Z87.59 Personal history of other complications of pregnancy, childbirth and the puerperium
CPT/HCPCS: 76816

== ENCOUNTER → 2020-12-28 08:38 | Outpatient (CLI) | payer OTHER, SELFPAY ==
[2020-12-13 08:51] VITALS: BMI 22.1
--- NOTE | 2020-12-28 08:41 | US_ITS ---
STUDY: ABDOMINAL ULTRASOUND REASON FOR EXAM: Female, 30 years old. Diffuse abdominal pain, patient is 29 weeks TECHNIQUE: Transabdominal ultrasound was performed with real-time and static dang scale imaging. TECHNICAL QUALITY: Limited. Examination limited by bowel gas. COMPARISON: None. FINDINGS: Liver: The liver measures 14.8 cm. There is normal echogenicity of the liver. The bile ducts are within normal limits. There is hepatic color flow. The direction of portal flow is hepatopetal. There is no demonstrated mass lesion. Portal vein measurement: Gallbladder: Normal distended gallbladder. The gallbladder wall measures 3 mm. There is a negative sonographic Corado''s sign. There is no pericholecystic fluid. There are multiple hyperechoic nonshadowing sludge balls within the gallbladder Common Bile Duct (C.B.D.): The common bile duct measures 2 mm. Pancreas: Visualized pancreas is sonographically normal Spleen: Normal size of the spleen. The spleen measures 10.8 cm. Right Kidney: Normal size of the right kidney. The right kidney measures 10.7 x 5.5 x 5.2 cm. Normal renal cortex. The right cortex measures 1.4 cm. There is no demonstrated renal mass or cyst. There is no right hydronephrosis. Left Kidney: Normal size of the left kidney. The left kidney measures 10.9 x 5 x 5.7 cm. Normal renal cortex. The left cortex measures 1.5 cm. There is no demonstrated renal mass or cyst. There is no left hydronephrosis. Aorta: Tapers normally I.V.C.: The IVC is patent. There is no ascites. US/Abdomen Complete IMPRESSION: Multiple hyperechoic sludge balls within the gallbladder, however, there is no sonographic evidence of cholecystitis. Electronically Signed: Ricky Alva MD at 10:39 EDT , Service support ,
== END ==
PROVIDERS: PCP Family Medicine; Referring Provider Nurse Practitioner Family; Visit Provider Nurse Practitioner Family
DX: R10.9 Unspecified abdominal pain (principal)
CPT/HCPCS: 76700

== ENCOUNTER → 2021-01-04 14:30 | Outpatient (CLI) | payer OTHER, SELFPAY ==
[2020-12-28 09:33] VITALS: BMI 22.1
--- NOTE | 2021-01-04 14:33 | VDLE_ITS ---
Reason For Study: SOB/ Pain in left leg Procedure LEFT This is a venous duplex using B-mode, color GSV is normal. flow and spectral Doppler. CFV is compressible, spontaneous, phasic, Exam performed in department. competent, and demonstrates normal A preliminary report was called and/or faxed augmentation. to Dona PRECIADO. FV is compressible, spontaneous, phasic, competent and demonstrates normal augmentation. POP V is compressible, spontaneous, phasic, competent and demonstrates normal augmentation. T/P Trunk is compressible. PTV is compressible. LT PerV is compressible. VL/Venous Duplex US, Unilateral Interpretation Summary There is no evidence of left lower extremity deep vein thrombosis. Left great s aphenous vein appears patent and compressible segmentally. Ordering Physician: Osmar Koenig Referring Physician: Katrina Cuevas M.D. Performed By: Rakel Dean RVT
== END ==
PROVIDERS: PCP Family Medicine; Referring Provider Internal Medicine Cardiovascular Disease; Visit Provider Internal Medicine Cardiovascular Disease
DX: O26.893 Other specified pregnancy related conditions, third trimester (principal); R00.2 Palpitations; Z87.59 Personal history of other complications of pregnancy, childbirth and the puerperium; I34.1 Nonrheumatic mitral (valve) prolapse; Z3A.30 30 weeks gestation of pregnancy
CPT/HCPCS: 93971

== ENCOUNTER → 2021-01-24 11:55 | Outpatient (CLI) | payer OTHER, SELFPAY ==
[2020-12-28 09:33] VITALS: BMI 22.1
--- NOTE | 2021-01-24 11:55 | US_ITS ---
STUDY: SECOND AND THIRD TRIMESTER OBSTETRICAL ULTRASOUND - LIMITED REASON FOR EXAM: Female, 30 years old umbilical cord placement LMP: 06/10/2020. PRIOR ULTRASOUND: Comparison is made with prior study dated 12/26/2020. TECHNIQUE: Transabdominal TECHNICAL QUALITY: Adequate. FINDINGS: There is a single intrauterine fetus. The fetus is in a cephalic presentation. There is demonstrated cardiac activity with a heart rate of 133 bpm. There is a normal amniotic fluid volume. The largest amniotic fluid pocket measures 5.3 cm. The amniotic fluid index (LYNDSEY) is 16.95 cm. The placenta is anterior in location and is not low lying. There are Grade 1 placental changes. The cervix measures 3.9 cm in length. The placental cord insertion is at 3.2 cm from the placental edge. BIOMETRY: BPD: 7.45 cm: 29 weeks, 6 days HC: 28.91 cm: 31 weeks, 5 days AC: 27.47 cm: 31 weeks, 3 days FL: 6.13 cm: 31 weeks, 5 days Age by LMP: 32 weeks, 4 days. EMILY by LMP: 03/17/2021. age by prior US: 31 weeks, 1 days. EMILY by prior US: 03/25/2021. age by current US: 31 weeks, 2 days. EMLIY by current US: 03/24/2021. Estimated weight: 1771 grams, +/- 266 grams, 13.7 percentile. US/OB Limited With Biometrics IMPRESSION: Single live uterine gestation with a mean gestational age of 31 weeks and 1 day. The measurements obtained today fall within the normal expected range. Electronically Signed: Bronson Wasserman MD at 14:55 EDT , Service support ,
== END ==
PROVIDERS: PCP Family Medicine; Referring Provider Obstetrics & Gynecology; Visit Provider Obstetrics & Gynecology
DX: O69.89X0 Labor and delivery complicated by other cord complications, not applicable or unspecified (principal); Z3A.31 31 weeks gestation of pregnancy
CPT/HCPCS: 76816

== ENCOUNTER → 2021-02-18 14:35 | Outpatient (CLI) | payer OTHER, SELFPAY ==
--- NOTE | 2021-02-18 14:37 | US_ITS ---
STUDY: SECOND AND THIRD TRIMESTER OBSTETRICAL ULTRASOUND - LIMITED REASON FOR EXAM: Female, 30 years old. Growth. LMP: 07/14/2020 PRIOR ULTRASOUND: 09/12/2020, 10/24/2020, 12/26/2020 and 01/24/2021 TECHNIQUE: Transabdominal TECHNICAL QUALITY: Adequate. FINDINGS: There is a single intrauterine fetus. The fetus is in a cephalic presentation. There is demonstrated cardiac activity with a heart rate of 153 bpm. There is a normal amniotic fluid volume. The largest amniotic fluid pocket measures 6.4 cm. The amniotic fluid index (LYNDSEY) is 17.43 cm. The placenta is anterior in location and is not low lying. There are Grade 1 placental changes. The cervix measures 3.16 cm cm in length. BIOMETRY: BPD: 8.15 cm: 32 weeks, 5 days HC: 31.42 cm: 35 weeks, 1 days AC: 32.4 cm: 36 weeks, 2 days FL: 6.8 cm: 34 weeks, 6 days Age by LMP: 33 weeks, 2 days. EMILY by LMP: 04/06/2021. age by prior US: 36 weeks, 1 days. EMILY by prior US: 03/17/2020. age by current US: 35 weeks, 0 days. EMILY by current US: 03/25/2021. Estimated weight: 2677 grams, +/- 402 grams, 33 percentile. Gender: Female US/OB Limited With Biometrics IMPRESSION: 1. Live single intrauterine 35 weeks, 0 days. EMILY is 03/25/2021. There is adequate interval growth since the initial ultrasound. 2. EFW of 2677 g. 3. LYNDSEY of 17.43 cm. 4. Anterior grade 1 placenta. 5. VERTEX presentation. Electronically Signed: Zach Murphy DO at 16:54 EDT Tel [phone], Service support ,
== END ==
PROVIDERS: PCP Family Medicine; Visit Provider Obstetrics & Gynecology
DX: O69.89X0 Labor and delivery complicated by other cord complications, not applicable or unspecified (principal); Z3A.00 Weeks of gestation of pregnancy not specified
CPT/HCPCS: 76816

== ENCOUNTER → 2021-02-22 16:04 | Outpatient (CLI) | payer OTHER, SELFPAY | PROVIDERS: PCP Family Medicine; Referring Provider Obstetrics & Gynecology; Visit Provider Obstetrics & Gynecology | DX: Z34.80 Encounter for supervision of other normal pregnancy, unspecified trimester (principal) | CPT/HCPCS: 87081 ==

== ENCOUNTER → 2021-03-08 14:18 | Outpatient (CLI) | payer OTHER, SELFPAY | PROVIDERS: PCP Family Medicine; Referring Provider Obstetrics & Gynecology; Visit Provider Obstetrics & Gynecology | DX: Z34.90 Encounter for supervision of normal pregnancy, unspecified, unspecified trimester (principal) | CPT/HCPCS: 87635; U0005; U0003 ==

== ENCOUNTER 2021-03-11 07:20 | Inpatient (IN) | payer OTHER, SELFPAY ==
[2021-03-11] VITALS (22 sets, daily range): BP systolic 99–122; BP diastolic 51–73; PULSE 69–99; RESP 16; TEMP 36–36.6; O2SAT 82–98; BMI 29.2
--- NOTE | 2021-03-11 07:54 | HP.PCM.OB_ITS ---
HPI - General General Date of Admission: 03/11/21 HPI Narrative ASHLEY INIGUEZ, is a 30 F who presents for IOL secondary to history of shoulder dystocia. she denies any vb or lof Maternal Data Information EMILY Calculator Estimated Delivery Date Method Current WG Current Estimate 03/17/21 [facility]1 39w 1d [facility] Medical History Active labor at term History of depression History of gestational hypertension History of gestational hypertension History of hypothyroidism History of miscarriage History of depression History of tetanus, diphtheria, and acellular pertussis booster vaccination (Tdap) Hypothyroid Palpitations Supervision of normal Thyroid disorder Home Medications albuterol sulfate 90 mcg/actuation aerosol inhaler 1 inh INHALATION PRN PRN 08/02/20 [History Last Taken Unknown] fluticasone furoate 27.5 mcg/actuation nasal spray,suspension 1 spray INTRANASAL DAILY PRN 08/02/20 [History Last Taken Unknown] omeprazole 20 mg tablet,delayed release 20 mg PO DAILY PRN tab 08/02/20 [History Last Taken Unknown] vitamin#30 30 mg iron-10 mg iron-folic acid 1 mg-omg3 capsule 1 cap PO DAILY 09/18/20 [History Last Taken 03/10/21 10:00] levothyroxine 88 mcg tablet 50 mcg PO DAILY tab 01/16/21 [History Last Taken 03/10/21 06:00] Allergy/AdvReac Type Severity Reaction Status Date / Time Sulfa (Sulfonamide Allergy Hives Verified 03/01/21 13:17 Antibiotics) Family History Father Fibromyalgia Hypertension Grandmother Heart disease Grandfather CAD (coronary artery disease) Surgical History History of tonsillectomy Social History Smoking Status: Former smoker alcohol intake: never substance use type: does not use caffeine: Yes what type of physical activity do you participate in: walking seatbelt use: always do you feel safe at home: Yes additional social history: [employer] Patient works at [employer] Physicians History 6 Elective abortions Hx Para 3 Spontaneous abortions 2 Hx # Term Pregnancies 3 Ectopic pregnancies Hx # Pregnancies Multiple births # of living children 3 Past Pregnancies Del. Date Name GA/Weeks Outcome Route Bth Weight Infant Gen Labor Lgth Anesthesia Del Locatn Provider FOB Unknown 2012 Melany 39 live - full term 5lbs 13oz Fe male 1 hour none Charlotte Jaquan Unknown 2015 Bing 41 live - full term 7lbs Female 1 hour none Charlotte Shraddha Lucio 09/25/18 Olegario 39 live - full term 7lbs 7oz Male 45 m inutes none [facility] Delivery Date: Bleeding, XIOMARATBenito DicksonOriana Delivery Date: Shoulder Dystocia; Consuelo Arias Delivery Date: 09/25/18 No notes to display Visit Details Expected Delivery Route/Plan Labor Preferences- CB/BF classes: no labor support person: [place] labor intervention preferences: open to standard interventions pain management options preferred: natural cut cord/dad catch: yes : yes PP control planned: discussed, considering vasectomy discussed possible routes of delivery and associated risks: [] special requests: [] Plans flu vaccine: yes tdap vaccine: given rhogam: NA LARC form signed: yes movement and labor precautions reviewed. Problem list reviewed and updated with the most current plan of care details and appropriate orders placed. Relevant counseling for the gestational age provided. Continue routine care and follow up unless otherwise noted in visit notes/problem list details OB Flowsheet Initial Weight: Not Recorded Date -?-?-?-?-?-?-?-?-?-?-?-?- EGA Weight BP Urine Prot -?-?-?-?-?-?-?-?-?-?-?-?- Glucose FHR FuHt Pres Dilation -?-?-?-?-?-?-?-?-?-?-?-?- Effaced St Visit Note 09/18/20 -?-?-?-?-?-?-?-?-?-?-?-?- 14w 2d 117 lb 118/70 -?-?-?-?-?-?-?-?-?-?-?-?- 170 -?-?-?-?-?-?-?-?-?-?-?-?- Sm- CRL measured and not cons with LMP 10/17/20 -?-?-?-?-?-?-?-?-?-?-?-?- 18w 3d 123 lb 104/68 Negative -?-?-?-?-?-?-?-?-?-?-?-?- Negative 144 -?-?-?-?-?-?-?-?-?-?-?-?- MH-No VB, LOF. F eeling flutters. [facility] anatomy US scheduled. AFP today. 11/13/20 -?-?-?-?-?-?-?-?-?-?-?-?- 22w 2d 126 lb 6 oz 102/64 Nega tive -?-?-?-?--?-?-?-?-?-?-?-?- Negative 151 -?-?-?-?-?-?-?-?-?-?-?-?- -NO Vb, LOF. Some coccyx pain like last . Will see chiropractor. 12/13/20 -?-?-?-?-?-?-?-?-?-?-?-?- 26w 4d 135 lb 6 oz 90/56 Nega tive -?-?-?-?-?-?-?-?-?-?-?-?- Negative 138 26 -?-?-?-?-?-?-?-?-?-?-?-?- -No VB, LOF. N ormal 28 wk labs but thyroid labs not done, Will get today. Tdap, Larc. Growth US 12/26. 12/28/20 -?-?-?-?-?-?-?-?-?-?-?-?- 28w 5d 138 lb 94/60 -?-?-?-?-?-?-?-?-?-?-?--?- 140 28 -?-?-?-?-?-?-?-?-?-?-?-?- SM-no vb lof goo d fm nor egular ctx 01/10/21 -?-?-?-?-?-?-?-?-?-?-?-?- 30w 4d 142 lb 118/70 Negative -?-?-?-?-?-?-?-?-?-?-?-?- Negative 140 30 -?-?-?-?-?-?-?-?-?-?-?-?- GP - no LOF, VB, DFM, ctx. Denies complaints. 01/24/21 -?-?-?-?-?-?-?-?-?-?-?-?- 32w 4d 146 lb 110/68 Negative -?-?-?-?-?-?-?-?-?-?-?-?- Negative 135 32 -?-?-?-?-?-?-?-?-?-?-?-?- GP - no LOF, VB, DFM, ctx. Denies complaints. FU ultrasound today. 02/08/21 -?-?-?-?-?-?-?-?-?-?-?-?- 34w 5d 149 lb 100/76 Negative -?-?-?-?-?-?-?-?-?-?-?-?- Negative 135 34 Cephalic -?-?-?-?-?-?-?-?-?-?-?-?- GP - no LOF, VB, dFM, ctx. Denies complaints. 02/22/21 -?-?-?-?-?-?-?-?-?-?-?-?- 36w 5d 152 lb 8 oz 114/80 Nega tive -?-?-?-?-?-?-?-?-?-?-?-?- Negative 145 35 Cephalic 1 -?-?-?-?-?-?-?-?-?-?-?-?- 50 -3 GP - no LO F, VB, DFM, ctx. Growth US nl. NST reactive 03/01/21 -?-?-?-?-?-?-?-?-?-?-?-?- 37w 5d 152 lb 4 oz 122/80 Nega tive -?-?-?-?-?-?-?-?-?-?-?-?- Negative 125 37 -?-?-?-?-?-?-?-?-?-?-?-?- GP- no LOF, VB, dFM, ctx. Denies complaints. 03/08/21 -?-?-?-?-?-?-?-?-?-?-?-?- 38w 5d 155 lb Negative -?-?-?-?-?-?-?-?-?-?-?-?- Negative 130 38 Cephalic 2 -?-?-?-?-?-?-?-?-?-?-?-?- 60 -2 SM- no vb lof good fm no regular ctx. 03/11/21 -?-?-?-?-?-?-?-?-?-?-?-?- 39w 1d 154 lb 8.705 oz 122/70 -?-?-?-?-?-?-?-?-?-?-?-?- -?-?-?-?-?-?-?-?-?-?-?-?- NST FHR Rate Baby A Baseline: 130 Variability:: Moderate Accelerations:: 15 x 15 Decelerations:: None NST Reactive:: Yes FHR Category:: Category I Uterine Activity:: irregular ROS Constitutional Constitutional: Reports systems reviewed and no addt'l complaints, except as documented Eyes Eyes: Denies change in vision ENT HEENT: Reports systems reviewed and no addt'l complaints, except as documented; Denies headache(s) Cardiovascular Cardiovascular: Reports systems reviewed and no addt'l complaints, except as documented; Denies chest pain or dyspnea Respiratory/Chest Respiratory/Chest: Reports systems reviewed and no addt'l complaints, except as documented Gastrointestinal Gastrointestinal: Reports systems reviewed and no addt'l complaints, except as documented; Denies abdominal pain Genitourinary Genitourinary: Reports systems reviewed and no addt'l complaints, except as documented, contractions Details: present (irregular) and movement Details: present; Denies dysuria or genital lesions Musculoskeletal Musculoskeletal: Reports systems reviewed and no addt'l complaints, except as documented Neurologic Neurologic: Reports systems reviewed and no addt'l complaints, except as documented Endocrine Endocrinology: Reports systems reviewed and no addt'l complaints, except as documented Vital Signs Vital Signs Vital Signs: 03/11/21 07:34 Pulse Rate 90 Blood Pressure 122/70 H BP Systolic 122 BP Diastolic 70 Weight Weight: 154 lb 8.705 oz Body Mass Index (BMI) 29.2 Physical Exam Const alert, oriented x3, no apparent distress and healthy appearing HEENT normocephalic and moist oral mucous membranes Head and Scalp: atraumatic Neck full ROM, no lymphadenopathy, supple and thyroid normal General: trachea midline Lymph Lymphatic: no lymphadenopathy noted Chest inspection of chest normal Resp normal respiratory effort Cardio regular rate GI normal to inspection, nondistended, normoactive bowel sounds, soft to palpation and non-tender Inspection: gravid external exam normal Manual OB Exam: estimated gestational size appropriate, presentation cephalic, dilated, effaced and station Extremity normal to inspection General Extremity: Negative for edema Skin no rashes or lesions noted Neuro no focal motor deficits and deep tendon reflexes 2+ bilaterally Motor Exam: strength 5/5 throughout and clonus absent Psych mental status grossly normal Labs Labs Labs: Blood Type B POSITIVE Antibody Screen NEGATIVE Hct 36.7 % (37-47) L Hgb 11.9 g/dL (12.0-15.0) L Pap Smear Negative Obstetrics US Syphilis Total Ab Non-reactive Rubella IgG Antibody Reactive (Nonreactive) Hep Bs Antigen Non-Reactive (Nonreactive) Neisseria gonorrhoeae DNA (LIZA) Negative (Negative) HIV 1&2 Antibody Non-Reactive (Nonreactive) Glucose 1 Hr 50 gm 68 mg/dL (70-140) L Rhogam given: No Miscellaneous Test Assessment & Plan (1) : QUALIFIERS: Weeks of gestation: 38 weeks Qualified Code(s): Z3A.38 - 38 weeks gestation of COMMENT: Desires genetics; discussed carrier, NIPT low risk, neg. AFP; GBS NEG (2) Supervision of other normal : COMMENT: PRR EMILY: 03/17/21 boy PC: Bing Mosley Colton Spouse: [place] (3) H/O depression, currently : (4) Anxiety and depression: COMMENT: not currently on medication; 12/13 stable (5) H/O shoulder dystocia in prior , currently : COMMENT: larger baby without complication since that delivery. (6) H/O precipitous labor and deliveries, antepartum: COMMENT: 45-60 min (7) History of hypothyroidism: COMMENT: repeat with 28 wk labs, levothyroxine 50mcg (8) Umbilical cord complication: QUALIFIERS: Umbilical cord complication type: other cord complication Fetus number: single or unspecified fetus Qualified Code(s): O69.89X0 - Labor and delivery complicated by other cord complications, not applicable or unspecified COMMENT: placement 1.9cm from edge. Rpt US at 28 wk for growth- NL US @ 32 & 36 wks PLAN: Patient presents IOL, plan management for with pitocin/AROM. Pain management: considering epidural. GBS negative. Management of any complications: none I have reviewed the [facility] and made any clinically relevant updates.
[2021-03-11] MEDS: Lactated Ringers 1,000 ML 50 ML IV (07:55)
[2021-03-11] MEDS: 0.9% Normal Saline Single 100 ML IV.SOLN. INTRA-UTER (08:05)
[2021-03-11 08:12] LABS: Absolute Lymphocyte Count 2.14 X10^3/uL (0.83-4.51); Absolute Neutrophil Count 7.6 X10^3/uL (2.0-7.7); Basophil# 0.03 X10^3/uL; Basophil% 0.3 % (0-1); Eosinophil# 0.05 X10^3/uL; Eosinophils% 0.5 % (0-5); Hematocrit 37.6 % (37-47); Hemoglobin 12.5 g/dL (12.0-15.0); Lymphocyte # 2.14 X10^3/ul (0.83-4.51); Lymphocyte % 19.9 % (19-41); Mean Corp Hgb Conc 33.2 g/dL (32-36); Mean Corpuscular Hgb 30.3 pg (27.0-32.0); Mean Corpuscular Volume 91.3 fL (81-99); Mean Platelet Vol. 11.8 fl (6.2-12.0); Monocyte# 0.85 X10^3/uL; Monocyte% 7.9 % (0-10); NRBC Flagged by Analyzer 0 % (0-5); Neutrophil # 7.63 X10^3/uL (2.7-7.7); Neutrophil % 70.8 % (47-70); Platelet Count 196 K/mm3 (150-450); RBC Distribution Width CV 13.2 % (11.6-14.6); RBC Distribution Width SD 44.3 fl (35.1-43.9); Red Blood Count 4.12 M/mm3 (4.2-5.4); White Blood Count 10.8 K/mm3 (4.4-11.0)
[2021-03-11] MEDS: Oxytocin 30 units/NS 500 ml 30 UNITS/500 ML IV.SOLN IV (08:24)
--- NOTE | 2021-03-11 13:42 | OP.PCM_ITS ---
Assessment & Plan (1) Vaginal delivery: COMMENT: SM 39 IOL h/o shoulder dystocia. boy Pavan Maternal Data Information EMILY Calculator Estimated Delivery Date Method Current WG Current Estimate 03/17/21 Ultrasound #1 39w 1d Vaginal Delivery Operative Information Date of Procedure: 03/11/21 Pre-Operative Diagnosis: IOL Post-Operative Diagnosis: same Surgery / Procedure Performed: Spontaneous Vaginal Delivery Type of Anesthesia: Local with 1% Lidocaine Special Medications: none Estimated Blood Loss: 100 Fluids Replaced: crystalloid Findings Description of Procedure: Patient began pushing and delivered the head in the ESPERANZA presentation. The head was delivered atraumatically and a loose nuchal cord ?1 was identified and the delivered through without complication. The anterior and posterior shoulders delivered without complication followed by the rest of the and the was placed on the maternal abdomen. Delayed cord clamping was employed for approximately 60 seconds. Cord was clamped and cut and gentle traction was applied to the cord and the placenta delivered spontaneously immediately following it was noted to be intact with three-vessel cord. The perineum and vagina were inspected and a second-degree perineal laceration was noted, injected with 1% lidocaine and repaired in the usual fashion with 3-0 Vicryl Rapide. EBL was 100 cc. Patient and tolerated delivery well. Presentation: ESPERANZA Amniotic Membrane Rupture Type: Artificial Amniotic Fluid Description: Clear Placental Delivery Description: Spontaneous Placenta Disposition: [facility] Cord Vessel Description: 3 Vessels Cord Entanglement: Around neck x 1, loose Delayed Cord Clamping: Yes Post Vaginal Delivery Episiotomy Description: None Laceration: None Complication Complications: None Procedures Urinary/Genital [id number]: [id number] [facility]aginal Delivery [facility]
--- NOTE | 2021-03-11 13:44 | PCM.DC ---
Discharge Instructions Diet Discharge Diet: No restrictions Activity Discharge Activity: Return to Normal Activity, May Not Drive (while taking narcotic pain medications.) and May Shower May resume sexual activity in: 4-6 weeks Dressing / Incision Call your doctor if your incision/area has: Continuous Slow Oozing, Sudden Increased Bleeding, Increased Pain/ Swelling, Increased Redness and Foul Smelling Discharge Follow Up Care Please Follow Up With: Oriana Dickson MD When: Call [phone] to make an appointment with your doctor in 6 weeks. If you had elevated blood pressure or 4th degree laceration, you will need to be seen in 2 weeks. Test Results: Test results from this visit will be discussed in further detail at your follow-up appointment, if applicable. Discharge Plan Admission Admit Date/Time: 03/11/21 07:20 Attending Provider: Oriana Dickson Primary Care Provider: Katrina Cuevas Discharge Orders/Prescriptions Prescriptions: No Action Flonase Sensimist 27.5 mcg/actuation spray,suspension 1 spray INTRANASAL DAILY PRN (Reason: allergies) RF: 0 albuterol sulfate [ProAir HFA] 90 mcg/actuation HFA aerosol inhaler 1 inh INHALATION PRN PRN (Reason: asthma) RF: 0 omeprazole 20 mg tablet,delayed release (DR/EC) 20 mg PO DAILY PRN (Reason: reflux) RF: 0 vitamin#30 30 mg iron-10 mg iron-folic acid 1 mg-omg3 capsule 30 mg iron-10 mg iron-1 mg capsule 1 cap PO DAILY RF: 0 levothyroxine 88 mcg tablet 50 mcg PO DAILY RF: 0
[2021-03-11] MEDS: Naproxen 500 MG Tablet PO ×2 (14:38→23:43)
[2021-03-11] MEDS: Acetaminophen 500 MG Tablet 1000 MG PO (18:34)
[2021-03-12 04:50] VITALS: BP 100/64; PULSE 68; RESP 16; TEMP 36.4; O2SAT 97
[2021-03-12] MEDS: Acetaminophen 500 MG Tablet 1000 MG PO ×2 (05:10→11:29)
[2021-03-12] MEDS: Levothyroxine 50 MCG Tablet PO (06:38)
--- NOTE | 2021-03-12 07:44 | PCM.PN.OB ---
Subjective Subjective Patient doing well without complaints. Tolerating PO. Ambulating and voiding without difficulty. Feeding well. Denies chest pain, shortness of breath, calf pain/swelling, fevers, chills, lightheadedness. Objective Data Objective Data Vital Signs: Vital Signs Temp Pulse Resp BP Pulse Ox 97.5 F L 68 16 100/64 97 03/12/21 04:50 03/12/21 04:50 03/12/21 04:50 03/12/21 04:50 03/12/21 04:50 Oxygen Delivery Method Room Air Weight: 154 lb 8.705 oz Body Mass Index (BMI) 29.2 Intake & Output: Intake and Output for Last 24 Hours 03/10/21 03/11/21 03/12/21 23:59 23:59 23:59 Intake Total 299.47 / 299.47 Output Total 950 / 950 Balance -650.53 / -650.53 Lab / Micro Data Result Diagrams: 03/11/21 07:55 Labs: Laboratory Results - last 24 hr 03/11/21 07:55: WBC 10.8, RBC 4.12 L, Hgb 12.5, Hct 37.6, MCV 91.3, MCH 30.3, MCHC 33.2, RDW Std Deviation 44.3 H, RDW Coeff of Alexi 13.2, Plt Count 196, MPV 11.8, Immature Gran % (Auto) 0.600, Neut % (Auto) 70.8 H, Lymph % (Auto) 19.9, [place] % (Auto) 7.9, Eos % (Auto) 0.5, Baso % (Auto) 0.3, Absolute Neuts (auto) 7.6, Absolute Lymphs (auto) 2.14, Nucleated RBC % 0 03/11/21 07:55: Blood Type B POSITIVE, Antibody Screen NEGATIVE Physical Exam Const alert and oriented x3 HEENT normocephalic Eyes PERRL Neck full ROM Resp normal respiratory effort GI soft to palpation GI Narrative: FF below U Assessment & Plan (1) Vaginal delivery: COMMENT: SM 39 IOL h/o shoulder dystocia. boy Pavan PLAN: s/p PPD # 1 1. routine post delivery care 2. breast feeding- support given 3. rh positive 4. rubella immune 5. home today
[2021-03-12] MEDS: Naproxen 500 MG Tablet PO (07:47)
[2021-03-12] MEDS: Senna/Docusate Sodium 1 Tablet PO (07:47)
[2021-03-12 08:00] VITALS: BP 103/66; PULSE 75; RESP 14; TEMP 36.1
--- NOTE | 2021-03-12 10:20 | PCM.CIRC ---
Circumcision Date of Procedure: 03/12/21 PROCEDURE PERFORMED Circumcision. PROCEDURE NOTE The risks, benefits, alternatives, and personnel were discussed with the family and consent was obtained verbally and in writing. Patient was brought back to the nursery and positioned on the circumcision board. A time-out was done with all personnel involved. Sweet-Ease was given to the patient. Patient was prepped and draped in sterile fashion. Lidocaine 1mL, 1% was used for a ring block of the penis. Patient was then circumcised in the standard fashion using a 1.1 Gomco. Normal foreskin was removed. Standard after care was performed by nursing staff. Post Circumcision Assessment: no complications
[2021-03-12 11:32] VITALS: BP 110/65; PULSE 73; RESP 15; TEMP 36.2
--- NOTE | 2021-03-12 17:04 | CASEMGMT ---
Social Work Brief Assessment Labor and Delivery Unit Patient Address: [address] [place] [address] [address] [place] [id number] Phone number: [phone] Date of Referral/Notification: 03/11/2021 Time of Referral: 170 Referred By: Dr. Stokes Date of Intervention: 03/12/2021 Time of Intervention: 1440 Reason for Referral: Maternal history of anxiety, depression, depression Informant: Medical record and mother of baby (MOB) Sasha Higgins History: ALEXANDER is a 30-year-old female, to the father of baby (FOB) Peterson Higgins for the last 9 years. MOB denies any domestic violence or safety concerns in this relationship. MOB is 6, para 3 now 4 after delivering baby boy during this admission. Children include: Melany (born 2012), Bing (born 2015), Olegario (born 09/25/2018), and baby boy Pavan (born 03/11/2021). care started at 14 weeks and regular thereafter. Baby Pavan delivered weighing 6 pounds 16 ounces. Apgars 8 and 9 at 1 and 5 minutes of life respectively. 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 MOB endorses history of depression and anxiety, along with depression after reports of her first child and then in between a miscarriage that occurred in between baby #2 baby #3. MOB reports depression looks more like it increased irritability and anxiety. Reports has been on and off of Zoloft in the past though not currently treated. No reports of any type of drug use. Maternal drug screen negative on 09/18/2020. Assessment: Met with MOB in room, introducing to self and social work role. MOB alone, laying in bed and attending to her baby. MOB appeared to be bonding with the baby as evidenced by rubbing the baby's back, kissing the baby's head, and smiling down at the baby. MOB talkative, with a bright affect and good eye contact. MOB open and acknowledging history of emotional health issues, and reports that this there was some increased anxiety. was unplanned, but had intended for only 3 children. MOB reports she would not change anything, is accepting of the baby, and loves the baby but that being and also going through delivery again was difficult for her mom to think about (increasing anxiety over the last couple of weeks). MOB reports to feel her current symptoms are manageable and that she is doing well overall. Reports to have good support from the FOB as well as some female friends whom the MOB could speak to. MOB reports if needed, would go back onto medication. MOB reports would also be open to counseling if this is ever needed in the future. MOB reports to have a good support system, the FOB works only on the weekends so will be home during the week to help with transition home. Reports to have necessary supplies, no issues with housing and no issues with transportation. Both the MOB mom and FOB's mom are involved and supportive. No voiced concerns by nursing staff regarding parent-child interactions or bonding. MOB accepted information on mood and anxiety disorders, which did include resources if needed in the future. The FOB did come into the room at the end of conversation, so this junior copywriter also engaged FOB in conversation regarding depression. FOB was talkative and appropriately engaged in conversation. Plan: MOB and discharging home. Resources given regarding mood and anxiety disorders. No further needs requested or indicated. -NURA Jaffe, SERENA *This note was generated with [employer] dictation software. It may contain incorrect words, spelling, and punctuation that were not noted in review of the chart prior to signing*
== END 2021-03-12 15:10 | disposition home or self-care (01) | DRG 807 ==
PROVIDERS: Admitting Provider Obstetrics & Gynecology; PCP Family Medicine; Visit Provider Obstetrics & Gynecology
DX: O70.1 Second degree perineal laceration during delivery (principal); Z37.0 Single live birth; O69.81X0 Labor and delivery complicated by cord around neck, without compression, not applicable or unspecified; O99.284 Endocrine, nutritional and metabolic diseases complicating childbirth; E03.9 Hypothyroidism, unspecified; Z3A.39 39 weeks gestation of pregnancy; Z79.890 Hormone replacement therapy; Z82.49 Family history of ischemic heart disease and other diseases of the circulatory system; Z87.891 Personal history of nicotine dependence; Z88.2 Allergy status to sulfonamides
CPT/HCPCS: 59025; 59050; 85025; 86850; 86900; 86901; 99218; J7120; G0378

== ENCOUNTER → 2022-11-25 | Outpatient (CLI) | payer OTHER, SELFPAY ==
[2022-11-25 18:19] LABS: Vitamin D,25 Hydroxy 46.7 ng/mL
[2022-11-25 18:22] LABS: Absolute Lymphocyte Count 2.83 X10^3/uL (0.83-4.51); Absolute Neutrophil Count 5.2 X10^3/uL (2.0-7.7); Basophil# 0.06 X10^3/uL; Basophil% 0.7 % (0-1); Eosinophil# 0.12 X10^3/uL; Eosinophils% 1.3 % (0-5); Erythrocyte Sedimentation Rate < 1 mm/hr (0-30); Hematocrit 39.7 % (37-47); Hemoglobin 12.9 g/dL (12.0-15.0); Lymphocyte # 2.83 X10^3/ul (0.83-4.51); Lymphocyte % 31.6 % (19-41); Mean Corp Hgb Conc 32.5 g/dL (32-36); Mean Corpuscular Hgb 30.3 pg (27.0-32.0); Mean Corpuscular Volume 93.2 fL (81-99); Mean Platelet Vol. 12.1 fl (6.2-12.0); Monocyte# 0.75 X10^3/uL; Monocyte% 8.4 % (0-10); NRBC Flagged by Analyzer 0 % (0-5); Neutrophil # 5.18 X10^3/uL (2.7-7.7); Neutrophil % 57.9 % (47-70); Platelet Count 265 K/mm3 (150-450); RBC Distribution Width CV 13.5 % (11.6-14.6); RBC Distribution Width SD 45.6 fl (35.1-43.9); Red Blood Count 4.26 M/mm3 (4.2-5.4)
[2022-11-25 19:16] LABS: ALB/GLOB Ratio 1.4 RATIO (0.9-2.4); AST(SGOT) 21 U/L (15-37); Alanine Aminotransfer ALT/SGPT 29 U/L (13-56); Alkaline Phosphatase 96 U/L (45-117); Anion Gap 7 (5-15); BUN 12 mg/dL (7-18); BUN/Creat Ratio 16.1 RATIO (10-20); CRP < 2.90 mg/L (0.0-3.0); Calcium,Total 9.2 mg/dL (8.5-10.1); Chloride 112 mmol/L (98-107); Creatinine, Serum 0.74 mg/dL (0.55-1.02); EST Glomerular Filtration Rate 96 mL/min (>60); Est Glom Filt Rate - Afr Amer 116 mL/min (>60); Globulin 2.8 g/dL (2.2-4.2); Glucose 82 mg/dL (74-106); Potassium 4.2 mmol/L (3.5-5.1); Protein, Total 6.8 g/dL (6.4-8.2); Sodium Level 139 mmol/L (136-145); Thyroid Stim Hormone (TSH) 3.08 uIU/mL (0.358-3.74)
[2022-11-27 16:09] LABS: Endomysial Antibody IgA Negative (Negative); Immunoglobulin A 41 mg/dL (87-352); Lyme Scn Total Ab w/Rflx Negative (Negative); t-Transglutaminase IgA <2 U/mL (0-3)
[2022-11-29 22:08] LABS: Beef <0.10 kU/L (Class 0); Chocolate <0.10 kU/L (Class 0); Corn <0.10 kU/L (Class 0); Egg, Whole <0.10 kU/L (Class 0); Milk (Cow) <0.10 kU/L (Class 0); Peanut <0.10 kU/L (Class 0); Pork <0.10 kU/L (Class 0); Soybean <0.10 kU/L (Class 0); Wheat <0.10 kU/L (Class 0)
== END | disposition home or self-care (01) ==
LOC: MFPLAB 15:09
PROVIDERS: PCP Family Medicine; Visit Provider Family Medicine
DX: O99.280 Endocrine, nutritional and metabolic diseases complicating pregnancy, unspecified trimester (principal); O99.891 Other specified diseases and conditions complicating pregnancy; Z3A.00 Weeks of gestation of pregnancy not specified; M25.50 Pain in unspecified joint
CPT/HCPCS: 36415; 80053; 82306; 82784; 83516; 84443; 85025; 85652; 86003; 86005; 86140; 86255; 86618

== ENCOUNTER → 2023-01-17 | Outpatient (CLI) | payer OTHER, SELFPAY ==
--- NOTE | 2023-01-17 11:02 | US_ITS ---
EXAM: US PELVIS TRANSABDOMINAL, COMPLETE CLINICAL INDICATION: PELVIC PAIN -- TECHNIQUE: Transabdominal pelvic ultrasound was performed with grayscale and color Doppler imaging. COMPARISON: No relevant prior studies available. FINDINGS: UTERUS/CERVIX: The uterus measures 9.4 x 4.0 5.2 cm. The endometrium measures 8 mm. Anteverted. There is no uterine mass. RIGHT OVARY: The right ovary measures 2.8 x 1.3 x 2.4 cm. Blood flow is present in the right ovary. LEFT OVARY: The left ovary measures 3.9 x 1.8 x 2.6 cm. Blood flow is present in the left ovary. FREE FLUID: None. BLADDER: The bladder measures 7.9 x 4.0 x 9.3 cm for volume of 1 52 mL. There is minimal debris within the urinary bladder. US/Pelvic (Non ) IMPRESSION: Minimal debris in the urinary bladder. There are no abnormalities of pelvis. Electronically Signed: Piter Herrera MD at 0:05 EDT ,
== END | disposition home or self-care (01) ==
LOC: US 11:00
PROVIDERS: PCP Family Medicine; Referring Provider Nurse Practitioner Women's Health; Visit Provider Nurse Practitioner Women's Health
DX: R10.2 Pelvic and perineal pain (principal)
CPT/HCPCS: 76856; 87086

== ENCOUNTER → 2023-01-22 | Outpatient (CLI) | payer OTHER, SELFPAY ==
[2023-01-28 12:09] LABS: HPV APTIMA, High Risk Negative (Negative)
== END | disposition home or self-care (01) ==
LOC: LABSPEC 13:53
PROVIDERS: PCP Family Medicine; Referring Provider Nurse Practitioner Women's Health; Visit Provider Nurse Practitioner Women's Health
DX: Z12.4 Encounter for screening for malignant neoplasm of cervix (principal)
CPT/HCPCS: 87624; 88175; G0145

== ENCOUNTER 2023-06-27 12:57 | Emergency (ER) | payer BC, SELFPAY ==
[2023-06-27 12:57] VITALS: BP 115/85; PULSE 101; RESP 16; TEMP 36.2; O2SAT 100; BMI 22.1
[2023-06-27 13:09] VITALS: BMI 21.7
--- NOTE | 2023-06-27 13:25 | CT_ITS ---
INDICATION: altered mental status EXAMINATION: CT BRAIN - CT Head or Brain W/O Contrast Injection TECHNIQUE: Multiple axial images were obtained of the head without intravenous contrast. A radiation dose optimization technique was used for this scan. IV Contrast dosage and agent: None. RADIATION DOSAGE (If Supplied By Facility): CTDIvol = ( 44.99 ) mGy, DLP = ( 779.24 ) mGycm COMPARISON: No relevant prior comparison study available FINDINGS: BRAIN PARENCHYMA: No intra- or extra-axial hemorrhage. No evidence of acute infarct. No intracranial mass or mass effect. There is preservation of the dang/white matter interface. Posterior fossa structures are unremarkable. CSF SPACES: Appropriate for age. No hydrocephalus. There is a septum pellucid et impression vergae, a normal variant. Basal cisterns are patent. CALVARIUM, SKULL BASE, PARANASAL SINUSES AND MASTOID AIR CELLS: Clear. No discrete lytic or blastic abnormalities. ORBITS: Both globes, extraocular muscles, optic nerves and retrobulbar fat appear unremarkable. ASPECTS Score for Acute Strokes: 10 CT/Brain/Head without Contrast IMPRESSION: No acute intracranial process. Electronically Signed: Letitia Valdes MD at 13:59 EST ,
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
--- NOTE | 2023-06-27 13:31 | NURSING ---
NO OLD EKGS
--- OUTSIDE RECORDS SUMMARY | 2023-06-27 13:34 | XMS RPT_ITS | CCD ---
Demographics Address [address] [place] [address] Preferred Language Greek Marital Status Sikh Affiliation Unknown Race White Ethnic Group Unknown Author Name Unknown Address [facility] [address] [place] [address] Organization [facility] Care Team Providers Care Chinese Language Professor Name Role Phone STEVE PONCES Renetta Unavailable Unavailable JOLLIFF, ALEXIS Unavailable Unavailable SHERMARY, GARRETT E. Unavailable Unavailable JOLLIFF, ALEXIS Unavailable Unavailable SHERMARY, GARRETT E. Unavailable Unavailable JOLLIFF, ALEXIS Unavailable Unavailable INDER OLSON Unavailable Unavailable JOLLIFF, ALEXIS Unavailable Unavailable INDER OLSON Unavailable Unavailable JOLLIFF, ALEXIS Unavailable Unavailable Results Test Name Value Interpretation Reference Range Facil ity Encounters Encounter Date Encounter Type Care Provider Facility Start: 04-07-2018 End: 04-08-2018 Patient encounter procedure INDER OLSON Facility:[facility] Start: 03-01-2018 End: 03-02-2018 Patient encounter procedure INDER OLSON Facility:[facility] Start: 06-12-2017 Patient encounter procedure GARRETT PONCE Facility: Start: 06-10-2017 End: 06-11-2017 Patient encounter procedure GARRETT PONCE Facility:[facility] Start: 06-08-2017 End: 06-09-2017 Patient encounter procedure GARRETT PONCE Facility:[facility] Payers Date Payer Category Payer Unknown [id number] 1990 Unknown [id number] 1990 Unknown [id number] 1990 Unknown [id number] 1990 Unknown [id number] 1990 Unknown [id number] [id number] Summary Purpose Family History No Family History Records Found Advance Directives No Advanced Directives Records Found Additional Source Comments INFORMATION SOURCE (unrecogn ized section and content) FOR RECORDS PERTAINING TO PATIENTS WHO ARE OR HAVE BEEN ENROLLED IN A CHEMICAL DEPENDENCY/SUBSTANCEABUSE PROGRAM, SOME INFORMATION MAY BE OMITTED. This clinical summary was aggregated from multiple sources. Caution should be exercised in using it in the provision of clinical care. This summary normalizes information from multiple sources, and as a consequence, information in this document may materially change the coding, format and clinical context of patient data. In addition, data may be omitted in some cases. CLINICAL DECISIONS SHOULD BE BASED ON THE PRIMARY CLINICAL RECORDS. [facility] [employer] [facility]. provides no warranty or guarantee of the accuracy or completeness of information in this document.
[2023-06-27 13:39] LABS: Bedside Glucose 97 mg/dL (74-106)
[2023-06-27 13:51] LABS: Absolute Lymphocyte Count 2.03 X10^3/uL (0.83-4.51); Absolute Neutrophil Count 3.8 X10^3/uL (2.0-7.7); Basophil# 0.04 X10^3/uL; Basophil% 0.6 % (0-1); Eosinophil# 0.12 X10^3/uL; Eosinophils% 1.8 % (0-5); Hematocrit 39.4 % (37-47); Hemoglobin 12.9 g/dL (12.0-15.0); Lymphocyte # 2.03 X10^3/ul (0.83-4.51); Lymphocyte % 31.1 % (19-41); Mean Corp Hgb Conc 32.7 g/dL (32-36); Mean Corpuscular Hgb 29.5 pg (27.0-32.0); Mean Corpuscular Volume 90.2 fL (81-99); Mean Platelet Vol. 10.7 fl (6.2-12.0); Monocyte% 7.7 % (0-10); NRBC Flagged by Analyzer 0 % (0-5); Neutrophil # 3.82 X10^3/uL (2.7-7.7); Neutrophil % 58.6 % (47-70); Platelet Count 261 K/mm3 (150-450); RBC Distribution Width CV 13.1 % (11.6-14.6); RBC Distribution Width SD 43.7 fl (35.1-43.9); Red Blood Count 4.37 M/mm3 (4.2-5.4); White Blood Count 6.5 K/mm3 (4.4-11.0)
[2023-06-27 13:59] LABS: Anion Gap 1 (5-15); BUN 17 mg/dL (7-18); BUN/Creat Ratio 20.2 RATIO (10-20); Calcium,Total 9.4 mg/dL (8.5-10.1); Chloride 112 mmol/L (98-107); Creatinine, Serum 0.84 mg/dL (0.55-1.02); EST Glomerular Filtration Rate 83 mL/min (>60); Est Glom Filt Rate - Afr Amer 100 mL/min (>60); Estimated Creatinine Clearance 71.88 ml/min; Glucose 90 mg/dL (74-106); Sodium Level 140 mmol/L (136-145)
[2023-06-27 14:09] VITALS: BP 98/73; PULSE 82; RESP 16; O2SAT 100
== END 2023-06-27 14:19 | disposition home or self-care (01) ==
PROVIDERS: Physician Assistant; Emergency Provider Emergency Medicine; PCP Family Medicine; Visit Provider Emergency Medicine
DX: R40.4 Transient alteration of awareness (principal); R20.2 Paresthesia of skin; F17.200 Nicotine dependence, unspecified, uncomplicated; F41.9 Anxiety disorder, unspecified; Z79.899 Other long term (current) drug therapy
CPT/HCPCS: 70450; 80048; 82962; 85025; 93005; 99283

== ENCOUNTER → 2023-07-31 | Outpatient (CLI) | payer BC, SELFPAY ==
--- NOTE | 2023-07-31 09:39 | US_ITS ---
STUDY: ABDOMINAL ULTRASOUND REASON FOR EXAM: Female, 33 years old. DISEASE OF STOMACH . Indigestion. TECHNIQUE: Transabdominal ultrasound was performed with real-time and static dang scale imaging. TECHNICAL QUALITY: Adequate. COMPARISON: Comparison is made with prior study dated December 28, 2020. FINDINGS: Liver: The liver measures 14.6 cm. There is increased echogenicity consistent with fatty infiltration. The bile ducts are within normal limits. There is hepatic color flow. The direction of portal flow is hepatopetal. There is no demonstrated mass lesion. Gallbladder: Normal distended gallbladder. The gallbladder wall measures 1.4 mm. There is a negative sonographic Corado''s sign. There is no pericholecystic fluid. There are no gallstones. There appears to be 3 small gallbladder polyps adherent to the gallbladder wall. The larger measures 5 mm x 2 mm x 2 mm. Common Bile Duct (C.B.D.): The common bile duct measures 4.6 mm. Pancreas: Normal size of the head, body and tail of the pancreas. There is normal echogenicity of the pancreas. There is no demonstrated pancreatic mass or cyst. Spleen: Normal size of the spleen. The spleen measures 10.8 cm x 4.7 cm x 4.6 cm. Right Kidney: Normal size of the right kidney. The right kidney measures 10.17 x 5.4 cm x 4.4 cm. Normal renal cortex. The right cortex measures 1.1 cm. There is no demonstrated renal mass or cyst. There is no right hydronephrosis. Left Kidney: Normal size of the left kidney. The left kidney measures 10.6 cm x 4.6 x 6 cm. Normal renal cortex. The left cortex measures 1.3 cm. There is no demonstrated renal mass or cyst. There is no left hydronephrosis. Aorta: Unremarkable I.V.C.: The IVC is patent. There is no ascites. US/Abdomen Complete IMPRESSION: Fatty infiltration of the liver. Findings suggestive of 3 small gallbladder polyp adherent to the gallbladder wall. Electronically Signed: Bronson Wasserman MD at 14:37 EST ,
--- OUTSIDE RECORDS SUMMARY | 2023-07-31 09:52 | XMS RPT_ITS | CCD ---
Demographics Address [address] [place] [address] Preferred Language Sudanese Marital Status Taoism Affiliation Unknown Race White Ethnic Group Unknown Author Name Unknown Address [address] [place] [address] [id number] [place] [address] Organization [facility] Care Team Providers Care Director Of Critical Care Name Role Phone STEVE PONCES EGrazyna Unavailable Unavailable JOLLIFF, ALEXIS Unavailable Unavailable SHERMARY, [...] End: 04-08-2018 Patient encounter procedure INDER OLSON Facility:[facility] Start: 03-01-2018 End: 03-02-2018 Patient encounter procedure INDER OLSON Facility:[facility] Start: 06-12-2017 Patient encounter procedure GARRETT PONCE Facility: Start: 06-10-2017 End: 06-11-2017 Patient encounter procedure GARRETT PONCE Facility:[facility] Start: 06-08-2017 End: 06-09-2017 Patient encounter procedure GARRETT PONCE Facility:[facility] Payers Date Payer Category Payer Unknown [id number] 1990 Unknown [id number] [id number] 1990 Unknown [id number] [id number] 1990 Unknown [id number] 2.16.8 [id number] 1990 Unknown [id number] 2.16.8 [id number] 1990 Unknown [id number] 2.16.8 [id number] Summary Purpose Family History No Family History [...] BE BASED ON THE PRIMARY CLINICAL RECORDS. [facility]. provides no warranty or guarantee of the accuracy or completeness of information in this document.
== END | disposition home or self-care (01) ==
PROVIDERS: PCP Family Medicine; Referring Provider Family Medicine; Visit Provider Family Medicine
DX: K31.9 Disease of stomach and duodenum, unspecified (principal)
CPT/HCPCS: 76700

== ENCOUNTER 2024-01-01 08:46 | Outpatient (RCR) | payer BC, SELFPAY ==
--- NOTE | 2024-02-22 16:05 | HP.PT.NRP ---
Patient Information Patient Information: ASHLEY INIGUEZ was seen in my office for initial evaluation on 01/01/24. The following Plan of Care was established for this patient: POC Established Initial Frequency: 2x /Week Initial Duration: 1 Week Anticipated Interventions Patient/Client Instruction: Educate patient on: Condition and Plan of Care For the Purpose of:: To improve self management Therapeutic Exercise to Include: Strength training, Postural training and Dynamic Lumbar Stabilization For the Purpose of:: To decrease pain Last Seen Last Seen: This patient was last seen in our office . Pertinent comments regarding their Physical therapy will appear below: Pt was evaluated for coccyx pain on 01/01/24. Pt has not returned through todays date, and is discontinued at this time At this point I will be discontinuing this patient from physical therapy. I would be happy to see this patient again in the future if found appropriate by the physician. Thank you! William Houston, PT, ATC
== END 2024-01-01 19:00 | disposition home or self-care (01) ==
LOC: PT 08:46
PROVIDERS: PCP Family Medicine; Referring Provider Family Medicine; Visit Provider Family Medicine
DX: M53.3 Sacrococcygeal disorders, not elsewhere classified (principal)
CPT/HCPCS: 97161